=== PATIENT | female | born 1950 | race Caucasian/White ===

== ENCOUNTER 2018-07-31 08:15 | Inpatient (IN) | payer MEDICARE, OTHER ==
[~2018-07-31] VITALS: Ht 165.1 cm; Wt 97.8 kg
[2018-07-31] MEDS ORDERED: DILTIAZEM 25 MG INJ IV ONE (09:00)
--- NOTE | 2018-07-31 09:45 | ERD ---
ER Documentation Chief Complaint Chief Complaint Palpitation after finishing dialysis also c/o of dizziness HPI 68-year-old woman with history of paroxysmal atrial fibrillation presents with palpitations and dizziness after completing full dialysis. She states in the past with atrial fibrillation she never felt palpitations and states last episode was about a year ago and she usually experiences at most 1/year. She denies chest pain, no loss of consciousness, no fevers or chills, no headache or blurry vision. Patient transported here by EMS without further complication, patient uses apixaban daily ROS All systems reviewed and are negative except as per history of present illness. Medications Home Meds Reported Medications Levothyroxine Sodium* (Levothyroxine Sodium*) 175 Mcg Tablet, 175 MCG PO BEFORE BREAKFAST, #30 TAB 07/31/18 Sevelamer Carbonate* (Renvela*) 2.4 Gm Powd.pack, 2.4 GM PO WITH MEALS, PACKET 07/31/18 Liraglutide (Victoza 3-Jerich[place]) 0.6 Mg/0.1 Ml Pen.injctr, 1.8 MG SQ DAILY, SYR 07/31/18 Insulin Aspart* (Novolog Insulin Pen*) 100 Unit/Ml Soln, 0 SC .SLIDING SCALE AC, EA 07/31/18 Insulin Glargine* (Lantus*) 100 Unit/Ml Soln, 50 UNIT SC DAILY, #1 VIAL 07/31/18 Sertraline Hcl* (Sertraline Hcl*) 100 Mg Tablet, 100 MG PO DAILY, #30 TAB 07/31/18 Irbesartan* (Irbesartan*) 150 Mg Tablet, 150 MG PO DAILY, TAB 07/31/18 Ergocalciferol (Vitamin D2) (VITAMIN D2) 50,000 Unit Capsule, 36254 UNIT PO WEEKLY, CAP 07/31/18 Cyanocobalamin* (Vitamin B12*) 500 Mcg Tab, 500 MCG PO DAILY, TAB 07/31/18 Folic Acid* (Folic Acid*) 1 Mg Tablet, 1 MG PO DAILY, TAB 07/31/18 Apixaban* (Eliquis*) 5 Mg Tablet, 5 MG PO BID, TAB 07/31/18 Pregabalin* (Lyrica*) 50 Mg Capsule, 50 MG PO BID, CAP 07/31/18 Carvedilol* (Coreg*) 25 Mg Tablet, 25 MG PO BID, #60 TAB 07/31/18 Allergies Allergies: Coded Allergies: No Known Allergy (Unverified , 07/31/18) PMhx/Soc Hypothyroidism, hypertension, diabetes mellitus, paroxysmal atrial fibrillation, end-stage kidney disease hemodialysis dependent History of Surgery: Yes (AVF PLACEMENT) Anesthesia Reaction: No Hx Neurological Disorder: No Hx Respiratory Disorders: No Hx Cardiac Disorders: Yes (HTN,AFIB) Hx Psychiatric Problems: No Hx Miscellaneous Medical Probl: Yes (DM) Hx Alcohol Use: No Hx Substance Use: No Hx Tobacco Use: No Smoking Status: Never smoker FmHx Family History: No diabetes Physical Exam Vitals Vital Signs Date Temp Pulse Resp B/P (MAP) Pulse Ox O2 O2 Flow FiO2 Time Delivery Rate 07/31/18 108 18 103/75 97 Room Air 09:39 (84) 07/31/18 Nasal 2 08:50 Cannula 07/31/18 97.7 115 18 116/78 98 08:23 (91) Physical Exam Const: No acute distress, afebrile Head: Atraumatic Eyes: Normal Conjunctiva ENT: Normal External Ears, Nose and Mouth. Neck: Full range of motion. No meningismus. Resp: Clear to auscultation bilaterally Cardio: Tachycardic and regular Abd: Soft, non tender, non distended. Normal bowel sounds Skin: No petechiae or rashes Back: No midline or flank tenderness Ext: No cyanosis, or edema Neur: Awake and alert x3, no focal deficits or facial asymmetry Psych: Normal Mood and Affect Result Diagram: 07/31/18 0839 07/31/18 0839 Results 24 hrs Laboratory Tests Test 07/31/18 08:39 White Blood Count 4.5 10^3/ul Red Blood Count 3.50 10^6/ul Hemoglobin 11.2 g/dl Hematocrit 34.4 % Mean Corpuscular Volume 98.3 fl Mean Corpuscular Hemoglobin 32.0 pg Mean Corpuscular Hemoglobin Concent 32.6 g/dl Red Cell Distribution Width 14.0 % Platelet Count 106 10^3/UL Mean Platelet Volume 11.4 fl Immature Granulocytes % 0.700 % Neutrophils % 60.9 % Lymphocytes % 23.9 % Monocytes % 12.0 % Eosinophils % 1.8 % Basophils % 0.7 % Nucleated Red Blood Cells % 0.0 /100WBC Immature Granulocytes # 0.030 10^3/ul Neutrophils # 2.8 10^3/ul Lymphocytes # 1.1 10^3/ul Monocytes # 0.5 10^3/ul Eosinophils # 0.1 10^3/ul Basophils # 0.0 10^3/ul Nucleated Red Blood Cells # 0.0 10^3/ul Prothrombin Time 13.0 Sec Prothrombin Time Ratio 1.0 INR International Normalized Ratio 0.97 Activated Partial Thromboplast Time 34.3 Sec Sodium Level 138 mmol/L Potassium Level 3.4 mmol/L Chloride Level 97 mmol/L Carbon Dioxide Level 30 mmol/L Anion Gap 11 Blood Urea Nitrogen 25 mg/dl Creatinine 2.52 mg/dl Est Glomerular Filtrat Rate mL/min 19 mL/min Glucose Level 163 mg/dl Calcium Level 8.9 mg/dl Total Bilirubin 0.2 mg/dl Direct Bilirubin 0.00 mg/dl Indirect Bilirubin 0.2 mg/dl Aspartate Amino Transf (AST/SGOT) 28 IU/L Alanine Aminotransferase (ALT/SGPT) 21 IU/L Alkaline Phosphatase 75 IU/L Troponin I 0.053 ng/ml Total Protein 7.1 g/dl Albumin 3.9 g/dl Globulin 3.20 g/dl Albumin/Globulin Ratio 1.21 Lipase 220 U/L Current Medications Medications Dose Sig/Jacky Start Time Status Last (Trade) Ordered Route PRN Stop Time Admin Dose Reason Admin Diltiazem 20 mg ONCE ONCE 07/31/18 DC 07/31/18 HCl IV 09:00 07/31/18 08:43 (Cardizem Iv) 09:01 Procedures/MDM IV line was established patient placed on front desk monitor rhythm strip revealed a wide-complex tachycardia at 130 bpm. Patient was afebrile. EKG performed, read by me revealed an atrial fibrillation with rapid ventricular rate at 127 bpm, right axis deviation, left bundle branch block, no concerning ST elevations or depressions noted. I administered diltiazem 20 mg IV x1 for A. fib with RVR. Repeat EKG was performed after diltiazem therapy revealing an atrial fibrillation rate controlled at 90 bpm, right axis deviation, left bundle branch block, no concerning ST elevations or depressions noted 1 view chest x-ray performed, read by me revealed cardiomegaly and a pacemaker in the left chest, bilateral pulmonary edema, no acute infiltrates, no pneumothorax. Critical Care: Time: 48 minutes, this was time separate from other billable procedures. Treatments/Evaluations: Close monitoring and treatment of unstable vital signs, cardiorespiratory, and neurologic status, while maintaining tight balance of fluid, respiratory, and cardiac interventions. CBC was unremarkable, electrolytes revealed renal failure, liver function tests normal, troponin negative Patient will be admitted to telemetry setting for atrial fibrillation with rapid ventricular rate and pulmonary edema. Departure Diagnosis: Primary Impression: Atrial fibrillation with RVR Additional Impressions: Pulmonary edema Chronicity: acute Qualified Codes: J81.0 - Acute pulmonary edema CHF (congestive heart failure) Heart failure type: combined systolic and diastolic Heart failure chronicit y: acute Qualified Codes: I50.41 - Acute combined systolic (congestive) and diastolic (congestive) heart failure End stage kidney disease Condition: TANIA Ramirez MD Jul 31, 2018 09:45
[2018-07-31] MEDS ORDERED: morphine 2 MG INJ IV PRN (11:00)
[2018-07-31] MEDS ORDERED: hydrALAzine 20 MG INJ IV PRN (11:00)
[2018-07-31] MEDS ORDERED: NITROGLYCERIN (SL) 0.4 MG TAB SL PRN (11:00)
[2018-07-31] MEDS ORDERED: ALBUTEROL/IPRATROPIUM (NEB) 3 ML AMP HHN PRN (11:00)
[2018-07-31] MEDS ORDERED: HYDROCODONE/APAP (5/325) TAB PO PRN (11:00)
[2018-07-31] MEDS ORDERED: NACL 0.9% 3 ML SYG IV SCH (11:00)
[2018-07-31] MEDS ORDERED: ACETAMINOPHEN 325 MG TAB PO PRN (11:00)
[2018-07-31] MEDS ORDERED: DILTIAZEM-D5W 125MG/125ML DRIP 125 ML IV SCH (11:00)
[2018-07-31] MEDS ORDERED: LORAZEPAM 2 MG INJ IV PRN (11:00)
[2018-07-31] MEDS ORDERED: DOCUSATE SODIUM 100 MG CAP PO PRN (11:00)
[2018-07-31] MEDS ORDERED: ONDANSETRON 4 MG INJ IV PRN (11:00)
[2018-07-31] MEDS ORDERED: MAGNESIUM HYDROXIDE 30ML CUP PO PRN (11:00)
[2018-07-31] MEDS ORDERED: CARV25TA97 PO (11:09)
[2018-07-31] MEDS ORDERED: APIX5TAB PO (11:10)
[2018-07-31] MEDS ORDERED: PREG50CA PO (11:10)
[2018-07-31] MEDS ORDERED: CYAN500T46 PO (11:22)
[2018-07-31] MEDS ORDERED: FOLI-49 PO (11:22)
[2018-07-31] MEDS ORDERED: SERT-165 PO (11:23)
[2018-07-31] MEDS ORDERED: IRBE150T21 PO (11:23)
[2018-07-31] MEDS ORDERED: ERGO500013 PO (11:23)
[2018-07-31] MEDS ORDERED: NOVO3I SC (11:24)
[2018-07-31] MEDS ORDERED: LANT3I SC ×2 (11:24→14:06)
[2018-07-31] MEDS ORDERED: LIRA0.6P2 SQ (11:25)
[2018-07-31] MEDS ORDERED: LEVO175T6 PO (11:25)
[2018-07-31] MEDS ORDERED: SEVE2.4P3 PO (11:25)
[2018-07-31] MEDS ORDERED: GLUCAGON 1 MG INJ IM PRN (13:30)
[2018-07-31] MEDS ORDERED: DEXTROSE 50% 50 ML SYRINGE IV PRN ×2 (13:30)
[2018-07-31] MEDS ORDERED: GLUCOSE GEL 15 GRAM TUBE PO PRN ×2 (13:30)
[2018-07-31] MEDS ORDERED: GLUCOSE GEL 15 GRAM TUBE BUCCAL PRN (13:30)
[2018-07-31 13:34] VITALS: PULSE 72
[2018-07-31 13:35] VITALS: BP 142/67; PULSE 72; RESP 18
[2018-07-31 14:04] VITALS: Ht 165.1 cm; Wt 97.8 kg
--- NOTE | 2018-07-31 14:11 | CONS ---
Consultation Date/Type/Reason Admit Date/Time Jul 31, 2018 at 10:51 Type of Consult Cardiology Date/Time of Note DATE: 07/31/18 TIME: 14:11 Hx of Present Illness 68 yo wih known parox robert kenny pt of Dr. Liliana jhaveri in place - if r/o MA - will dispo - pt has apptto see Dr. Elias Thursday # [id number] Past Medical History Home Meds Reported Medications Insulin Glargine* (Lantus*) 100 Unit/Ml Soln, 10-30 UNIT SC QHS, #1 VIAL 07/31/18 Levothyroxine Sodium* (Levothyroxine Sodium*) 175 Mcg Tablet, 175 MCG PO BEFORE BREAKFAST, #30 TAB 07/31/18 Sevelamer Carbonate* (Renvela*) 2.4 Gm Powd.pack, 2.4 GM PO WITH MEALS, PACKET 07/31/18 Liraglutide (Victoza 3-[place]) 0.6 Mg/0.1 Ml Pen.injctr, 1.8 MG SQ DAILY, SYR 07/31/18 Insulin Aspart* (Novolog Insulin Pen*) 100 Unit/Ml Soln, 0 SC .SLIDING SCALE AC, EA 07/31/18 Sertraline Hcl* (Sertraline Hcl*) 100 Mg Tablet, 100 MG PO DAILY, #30 TAB 07/31/18 Irbesartan* (Irbesartan*) 150 Mg Tablet, 150 MG PO DAILY, TAB 07/31/18 Ergocalciferol (Vitamin D2) (VITAMIN D2) 50,000 Unit Capsule, 17255 UNIT PO WEEKLY, CAP 07/31/18 Cyanocobalamin* (Vitamin B12*) 500 Mcg Tab, 500 MCG PO DAILY, TAB 07/31/18 Folic Acid* (Folic Acid*) 1 Mg Tablet, 1 MG PO DAILY, TAB 07/31/18 Apixaban* (Eliquis*) 5 Mg Tablet, 5 MG PO BID, TAB 07/31/18 Pregabalin* (Lyrica*) 50 Mg Capsule, 50 MG PO BID, CAP 07/31/18 Carvedilol* (Coreg*) 25 Mg Tablet, 25 MG PO BID, #60 TAB 07/31/18 Discontinued Reported Medications Insulin Glargine* (Lantus*) 100 Unit/Ml Soln, 50 UNIT SC DAILY, #1 VIAL 07/31/18 Medications Current Medications IV Flush (NS 3 ml) 3 ml PER PROTOCOL IV ; Start 07/31/18 at 11:00 Ondansetron HCl (Zofran Inj) 4 mg Q6H PRN IV NAUSEA/VOMITING; Start 07/31/18 at 11:00 Acetaminophen (Tylenol Tab) 650 mg Q6H PRN PO .PAIN 1-3 OR TEMP; Start 07/31/18 at 11:00 Acetaminophen/ Hydrocodone Bitart ([place] (5/325)) 1 tab Q6H PRN PO .MOD PAIN 4- 6; Start 07/31/18 at 11:00 Morphine Sulfate (morphine) 2 mg Q4H PRN IV .SEVERE PAIN 7-10; Start 07/31/18 at 11:00 Docusate Sodium (Colace) 100 mg Q12H PRN PO .CONSTIPATION; Start 07/31/18 at 11:00 Magnesium Hydroxide (Milk Of Mag) 30 ml DAILY PRN PO .CONSTIPATION; Start 07/31/18 at 11:00 Pantoprazole (Protonix Tab) 40 mg DAILY@06 PO ; Start 08/01/18 at 06:00 Lorazepam (Ativan) 0.5 mg Q6H PRN IV ANXIETY; Start 07/31/18 at 11:00 Albuterol/ Ipratropium (Duoneb) 3 ml Q4H RESP THERAPY PRN HHN SHORTNESS OF BREATH; Start 07/31/18 at 11:00 Hydralazine HCl (Apresoline) 10 mg Q6H PRN IV ELEVATED BLOOD PRESSURE; Start 07/31/18 at 11:00 Nitroglycerin (Nitroglycerin (Sl Tab) 0.4 Mg) 1 tab Q5M PRN SL ANGINA; Start 07/31/18 at 11:00 Diltiazem HCl 125 ml @ 5 mls/hr TITRATE IV ; Start 07/31/18 at 11:00 Apixaban (Eliquis) 5 mg BID PO ; Start 07/31/18 at 21:00 Carvedilol (Coreg) 25 mg BID PO ; Start 07/31/18 at 21:00 Cyanocobalamin (Vitamin B12) 500 mcg DAILY PO ; Start 08/01/18 at 09:00 Folic Acid (Folic Acid) 1 mg DAILY PO ; Start 08/01/18 at 09:00 Insulin Glargine (Lantus) 50 units DAILY SC ; Start 08/01/18 at 09:00 Levothyroxine Sodium (Synthroid) 175 mcg BEFORE BREAKFAST PO ; Start 08/01/18 at 07:00 Pregabalin (Lyrica) 50 mg BID PO ; Start 07/31/18 at 21:00 Sevelamer Carbonate (Renvela) 2.4 gm WITH MEALS PO ; Start 07/31/18 at 18:00 Miscellaneous Information 1 ea NOTE XX ; Start 07/31/18 at 13:30 Glucose (Glutose) 15 gm Q15M PRN PO DECREASED GLUCOSE; Start 07/31/18 at 13:30 Glucose (Glutose) 22.5 gm Q15M PRN PO DECREASED GLUCOSE; Start 07/31/18 at 13:30 Dextrose (D50w Syringe) 25 ml Q15M PRN IV DECREASED GLUCOSE; Start 07/31/18 at 13:30 Dextrose (D50w Syringe) 50 ml Q15M PRN IV DECREASED GLUCOSE; Start 07/31/18 at 13:30 Glucagon (Glucagen) 1 mg Q15M PRN IM DECREASED GLUCOSE; Start 07/31/18 at 13:30 Glucose (Glutose) 15 gm Q15M PRN BUCCAL DECREASED GLUCOSE; Start 07/31/18 at 13:30 Allergies: Coded Allergies: No Known Allergy (Unverified , 07/31/18) Social History Smoking Status: Never smoker Exam/Review of Systems Vital Signs Vitals Vital Signs Date Temp Pulse Resp B/P (MAP) Pulse Ox O2 O2 Flow FiO2 Time Delivery Rate 07/31/18 98.9 72 18 142/67 96 Room Air 13:35 (92) 07/31/18 2 08:50 Labs Result Diagram: 07/31/18 0839 07/31/18 0839 Results 24hrs Laboratory Tests Test 07/31/18 08:39 07/31/18 11:10 White Blood Count 4.5 L Red Blood Count 3.50 L Hemoglobin 11.2 L Hematocrit 34.4 L Mean Corpuscular Volume 98.3 Mean Corpuscular Hemoglobin 32.0 Mean Corpuscular Hemoglobin Concent 32.6 Red Cell Distribution Width 14.0 Platelet Count 106 L Mean Platelet Volume 11.4 H Immature Granulocytes % 0.700 H Neutrophils % 60.9 Lymphocytes % 23.9 Monocytes % 12.0 H Eosinophils % 1.8 Basophils % 0.7 Nucleated Red Blood Cells % 0.0 Immature Granulocytes # 0.030 Neutrophils # 2.8 Lymphocytes # 1.1 Monocytes # 0.5 Eosinophils # 0.1 Basophils # 0.0 Nucleated Red Blood Cells # 0.0 Prothrombin Time 13.0 14.7 Prothrombin Time Ratio 1.0 1.1 INR International Normalized Ratio 0.97 1.14 Activated Partial Thromboplast Time 34.3 33.7 Sodium Level 138 Potassium Level 3.4 L Chloride Level 97 Carbon Dioxide Level 30 Anion Gap 11 Blood Urea Nitrogen 25 H Creatinine 2.52 H Est Glomerular Filtrat Rate mL/min 19 L Glucose Level 163 Calcium Level 8.9 Total Bilirubin 0.2 Direct Bilirubin 0.00 Indirect Bilirubin 0.2 Aspartate Amino Transf (AST/SGOT) 28 Alanine Aminotransferase (ALT/SGPT) 21 Alkaline Phosphatase 75 Troponin I 0.053 Total Protein 7.1 Albumin 3.9 Globulin 3.20 Albumin/Globulin Ratio 1.21 Lipase 220 Free Thyroxine 1.23 Medications Medications Current Medications IV Flush (NS 3 ml) 3 ml PER PROTOCOL IV ; Start 07/31/18 at 11:00 Ondansetron HCl (Zofran Inj) 4 mg Q6H PRN IV NAUSEA/VOMITING; Start 07/31/18 at 11:00 Acetaminophen (Tylenol Tab) 650 mg Q6H PRN PO .PAIN 1-3 OR TEMP; Start 07/31/18 at 11:00 Acetaminophen/ Hydrocodone Bitart ([place] (5/325)) 1 tab Q6H PRN PO .MOD PAIN 4- 6; Start 07/31/18 at 11:00 Morphine Sulfate (morphine) 2 mg Q4H PRN IV .SEVERE PAIN 7-10; Start 07/31/18 at 11:00 Docusate Sodium (Colace) 100 mg Q12H PRN PO .CONSTIPATION; Start 07/31/18 at 11:00 Magnesium Hydroxide (Milk Of Mag) 30 ml DAILY PRN PO .CONSTIPATION; Start 07/31/18 at 11:00 Pantoprazole (Protonix Tab) 40 mg DAILY@06 PO ; Start 08/01/18 at 06:00 Lorazepam (Ativan) 0.5 mg Q6H PRN IV ANXIETY; Start 07/31/18 at 11:00 Albuterol/ Ipratropium (Duoneb) 3 ml Q4H RESP THERAPY PRN HHN SHORTNESS OF CHASITY TH; Start 07/31/18 at 11:00 Hydralazine HCl (Apresoline) 10 mg Q6H PRN IV ELEVATED BLOOD PRESSURE; Start 07/31/18 at 11:00 Nitroglycerin (Nitroglycerin (Sl Tab) 0.4 Mg) 1 tab Q5M PRN SL ANGINA; Start 07/31/18 at 11:00 Diltiazem HCl 125 ml @ 5 mls/hr TITRATE IV ; Start 07/31/18 at 11:00 Apixaban (Eliquis) 5 mg BID PO ; Start 07/31/18 at 21:00 Carvedilol (Coreg) 25 mg BID PO ; Start 07/31/18 at 21:00 Cyanocobalamin (Vitamin B12) 500 mcg DAILY PO ; Start 08/01/18 at 09:00 Folic Acid (Folic Acid) 1 mg DAILY PO ; Start 08/01/18 at 09:00 Insulin Glargine (Lantus) 50 units DAILY SC ; Start 08/01/18 at 09:00 Levothyroxine Sodium (Synthroid) 175 mcg BEFORE BREAKFAST PO ; Start 08/01/18 at 07:00 Pregabalin (Lyrica) 50 mg BID PO ; Start 07/31/18 at 21:00 Sevelamer Carbonate (Renvela) 2.4 gm WITH MEALS PO ; Start 07/31/18 at 18:00 Miscellaneous Information 1 ea NOTE XX ; Start 07/31/18 at 13:30 Glucose (Glutose) 15 gm Q15M PRN PO DECREASED GLUCOSE; Start 07/31/18 at 13:30 Glucose (Glutose) 22.5 gm Q15M PRN PO DECREASED GLUCOSE; Start 07/31/18 at 13:30 Dextrose (D50w Syringe) 25 ml Q15M PRN IV DECREASED GLUCOSE; Start 07/31/18 at 13:30 Dextrose (D50w Syringe) 50 ml Q15M PRN IV DECREASED GLUCOSE; Start 07/31/18 at 13:30 Glucagon (Glucagen) 1 mg Q15M PRN IM DECREASED GLUCOSE; Start 07/31/18 at 13:30 Glucose (Glutose) 15 gm Q15M PRN BUCCAL DECREASED GLUCOSE; Start 07/31/18 at 13:30 DAVID BUSH MD Jul 31, 2018 14:11
--- NOTE | 2018-07-31 14:26 | CONS ---
Assessment/Plan Assessment/Plan Assessment/Plan (Daily) 1. Acute Fluid overload/Pulmonary congestion 2. ESRD on HD TTS schedule 3. H/O HTN 4. H/o HL 5. H/o DM II 6. atrial fibrillation with RVR 7. H/o pacemaker placement Plan: s/p HD today AM for 3 hr- pt regular schedule is TTS - will plan for HD on Thursday, pt has AVF access Rate control of atrial fibrillation with cardizem gtt, coreg 25 mg BID Sevelamer for Hyperphosphatemia will plan for extra HD on ydue to congestion and then we will keep pt on her original HD schedule TTS Thanks for consultation I will continue to follow up Consultation Date/Type/Reason Admit Date/Time Jul 31, 2018 at 10:51 Date of Consultation: Jul 31, 2018 Type of Consult NEPHROLOGY Reason for Consultation Acute kidney injury Requesting Provider: ELVIA ZULETA Date/Time of Note DATE: 07/31/18 TIME: 14:26 Hx of Present Illness 68-year-old female with prior history of atrial fibrillation on Eliquis at home, hypertension, end-stage renal disease on dialysis Thu,, Thursday, possible diabetes who presents with palpitations. She completed about 3 hours of dialysis and felt some palpitations post dialysis. She says she has not felt this before. No upper or lower GI bleeding, fevers or chills, diarrhea, consti pation, nausea or vomiting. pt gets admitted for atrial fibrillation with RVR Renal has been consulted for HD need, CXR showed pulmonary congestion. saturation 97% RA, BP slightly high, Constitutional: no complaints Eyes: no complaints ENT: no complaints Respiratory: pain Cardiovascular: lightheadedness, palpitations Gastrointestinal: no complaints Genitourinary: no complaints Musculoskeletal: no complaints Skin: no complaints Neurologic: no complaints Endocrine: no complaints Lymphatic: no complaints Psychological: no complaints Immunologic: no complaints Past Medical History Medical History: diabetes, hypertension, other (trial fibrillation on Eliquis at home, hypertension, end-stage renal disease on dialysis Thu,, Thursday) Home Meds Reported Medications Insulin Glargine* (Lantus*) 100 Unit/Ml Soln, 10-30 UNIT SC QHS, #1 VIAL 07/31/18 Levothyroxine Sodium* (Levothyroxine Sodium*) 175 Mcg Tablet, 175 MCG PO BEFORE BREAKFAST, #30 TAB 07/31/18 Sevelamer Carbonate* (Renvela*) 2.4 Gm Powd.pack, 2.4 GM PO WITH MEALS, PACKET 07/31/18 Liraglutide (Victoza 3-[place]) 0.6 Mg/0.1 Ml Pen.injctr, 1.8 MG SQ DAILY, SYR 07/31/18 Insulin Aspart* (Novolog Insulin Pen*) 100 Unit/Ml Soln, 0 SC .SLIDING SCALE AC, EA 07/31/18 Sertraline Hcl* (Sertraline Hcl*) 100 Mg Tablet, 100 MG PO DAILY, #30 TAB 07/31/18 Irbesartan* (Irbesartan*) 150 Mg Tablet, 150 MG PO DAILY, TAB 07/31/18 Ergocalciferol (Vitamin D2) (VITAMIN D2) 50,000 Unit Capsule, 53573 UNIT PO WEEKLY, CAP 07/31/18 Cyanocobalamin* (Vitamin B12*) 500 Mcg Tab, 500 MCG PO DAILY, TAB 07/31/18 Folic Acid* (Folic Acid*) 1 Mg Tablet, 1 MG PO DAILY, TAB 07/31/18 Apixaban* (Eliquis*) 5 Mg Tablet, 5 MG PO BID, TAB 07/31/18 Pregabalin* (Lyrica*) 50 Mg Capsule, 50 MG PO BID, CAP 07/31/18 Carvedilol* (Coreg*) 25 Mg Tablet, 25 MG PO BID, #60 TAB 07/31/18 Discontinued Reported Medications Insulin Glargine* (Lantus*) 100 Unit/Ml Soln, 50 UNIT SC DAILY, #1 VIAL 07/31/18 Medications Current Medications IV Flush (NS 3 ml) 3 ml PER PROTOCOL IV ; Start 07/31/18 at 11:00 Ondansetron HCl (Zofran Inj) 4 mg Q6H PRN IV NAUSEA/VOMITING; Start 07/31/18 at 11:00 Acetaminophen (Tylenol Tab) 650 mg Q6H PRN PO .PAIN 1-3 OR TEMP; Start 07/31/18 at 11:00 Acetaminophen/ Hydrocodone Bitart ([place] (5/325)) 1 tab Q6H PRN PO .MOD PAIN 4- 6; Start 07/31/18 at 11:00 Morphine Sulfate (morphine) 2 mg Q4H PRN IV .SEVERE PAIN 7-10; Start 07/31/18 at 11:00 Docusate Sodium (Colace) 100 mg Q12H PRN PO .CONSTIPATION; Start 07/31/18 at 11:00 Magnesium Hydroxide (Milk Of Mag) 30 ml DAILY PRN PO .CONSTIPATION; Start 07/31/18 at 11:00 Pantoprazole (Protonix Tab) 40 mg DAILY@06 PO ; Start 08/01/18 at 06:00 Lorazepam (Ativan) 0.5 mg Q6H PRN IV ANXIETY; Start 07/31/18 at 11:00 Albuterol/ Ipratropium (Duoneb) 3 ml Q4H RESP THERAPY PRN HHN SHORTNESS OF BREATH; Start 07/31/18 at 11:00 Hydralazine HCl (Apresoline) 10 mg Q6H PRN IV ELEVATED BLOOD PRESSURE; Start 07/31/18 at 11:00 Nitroglycerin (Nitroglycerin (Sl Tab) 0.4 Mg) 1 tab Q5M PRN SL ANGINA; Start 07/31/18 at 11:00 Diltiazem HCl 125 ml @ 5 mls/hr TITRATE IV ; Start 07/31/18 at 11:00 Apixaban (Eliquis) 5 mg BID PO ; Start 07/31/18 at 21:00 Carvedilol (Coreg) 25 mg BID PO ; Start 07/31/18 at 21:00 Cyanocobalamin (Vitamin B12) 500 mcg DAILY PO ; Start 08/01/18 at 09:00 Folic Acid (Folic Acid) 1 mg DAILY PO ; Start 08/01/18 at 09:00 Insulin Glargine (Lantus) 50 units DAILY SC ; Start 08/01/18 at 09:00 Levothyroxine Sodium (Synthroid) 175 mcg BEFORE BREAKFAST PO ; Start 08/01/18 at 07:00 Pregabalin (Lyrica) 50 mg BID PO ; Start 07/31/18 at 21:00 Sevelamer Carbonate (Renvela) 2.4 gm WITH MEALS PO ; Start 07/31/18 at 18:00 Miscellaneous Information 1 ea NOTE XX ; Start 07/31/18 at 13:30 Glucose (Glutose) 15 gm Q15M PRN PO DECREASED GLUCOSE; Start 07/31/18 at 13:30 Glucose (Glutose) 22.5 gm Q15M PRN PO DECREASED GLUCOSE; Start 07/31/18 at 13:30 Dextrose (D50w Syringe) 25 ml Q15M PRN IV DECREASED GLUCOSE; Start 07/31/18 at 13:30 Dextrose (D50w Syringe) 50 ml Q15M PRN IV DECREASED GLUCOSE; Start 07/31/18 at 13:30 Glucagon (Glucagen) 1 mg Q15M PRN IM DECREASED GLUCOSE; Start 07/31/18 at 13:30 Glucose (Glutose) 15 gm Q15M PRN BUCCAL DECREASED GLUCOSE; Start 07/31/18 at 13:30 Allergies: Coded Allergies: No Known Allergy (Unverified , 07/31/18) Past Surgical History Past Surgical Hx: other (AV fistula, pacemaker ) Family History Significant Family History: no pertinent family hx Social History Alcohol Use: none Smoking Status: Never smoker Drug Use: none Exam/Review of Systems Exam Vitals Vital Signs Date Temp Pulse Resp B/P (MAP) Pulse Ox O2 O2 Flow FiO2 Time Delivery Rate 07/31/18 98.9 72 18 142/67 96 Room Air 13:35 (92) 07/31/18 2 08:50 Constitutional: alert Head: normocephalic Eyes: nl conjunctiva Neck: supple, non-tender Respiratory: congested cough, crackles/rales, diminished breath sounds Cardiovascular: regular rate and rhythm, nl pulses Gastrointestinal: soft, non-tender Musculoskeletal: muscle weakness, swelling Extremities: normal pulses Neurological: HEALTH INFORMATION TECHNICIAN II-XII intact, nl mental status, nl speech, nl strength Skin: nl turgor Lymph: nl lymph nodes Results Result Diagram: 07/31/18 0839 07/31/18 0839 Results 24hrs Laboratory Tests Test 07/31/18 08:39 07/31/18 11:10 White Blood Count 4.5 L Red Blood Count 3.50 L Hemoglobin 11.2 L Hematocrit 34.4 L Mean Corpuscular Volume 98.3 Mean Corpuscular Hemoglobin 32.0 Mean Corpuscular Hemoglobin Concent 32.6 Red Cell Distribution Width 14.0 Platelet Count 106 L Mean Platelet Volume 11.4 H Immature Granulocytes % 0.700 H Neutrophils % 60.9 Lymphocytes % 23.9 Monocytes % 12.0 H Eosinophils % 1.8 Basophils % 0.7 Nucleated Red Blood Cells % 0.0 Immature Granulocytes # 0.030 Neutrophils # 2.8 Lymphocytes # 1.1 Monocytes # 0.5 Eosinophils # 0.1 Basophils # 0.0 Nucleated Red Blood Cells # 0.0 Prothrombin Time 13.0 14.7 Prothrombin Time Ratio 1.0 1.1 INR International Normalized Ratio 0.97 1.14 Activated Partial Thromboplast Time 34.3 33.7 Sodium Level 138 Potassium Level 3.4 L Chloride Level 97 Carbon Dioxide Level 30 Anion Gap 11 Blood Urea Nitrogen 25 H Creatinine 2.52 H Est Glomerular Filtrat Rate mL/min 19 L Glucose Level 163 Calcium Level 8.9 Total Bilirubin 0.2 Direct Bilirubin 0.00 Indirect Bilirubin 0.2 Aspartate Amino Transf (AST/SGOT) 28 Alanine Aminotransferase (ALT/SGPT) 21 Alkaline Phosphatase 75 Troponin I 0.053 Total Protein 7.1 Albumin 3.9 Globulin 3.20 Albumin/Globulin Ratio 1.21 Lipase 220 Free Thyroxine 1.23 Medications Medication Current Medications IV Flush (NS 3 ml) 3 ml PER PROTOCOL IV ; Start 07/31/18 at 11:00 Ondansetron HCl (Zofran Inj) 4 mg Q6H PRN IV NAUSEA/VOMITING; Start 07/31/18 at 11:00 Acetaminophen (Tylenol Tab) 650 mg Q6H PRN PO .PAIN 1-3 OR TEMP; Start 07/31/18 at 11:00 Acetaminophen/ Hydrocodone Bitart ([place] (5/325)) 1 tab Q6H PRN PO .MOD PAIN 4- 6; Start 07/31/18 at 11:00 Morphine Sulfate (morphine) 2 mg Q4H PRN IV .SEVERE PAIN 7-10; Start 07/31/18 at 11:00 Docusate Sodium (Colace) 100 mg Q12H PRN PO .CONSTIPATION; Start 07/31/18 at 11:00 Magnesium Hydroxide (Milk Of Mag) 30 ml DAILY PRN PO .CONSTIPATION; Start 07/31/18 at 11:00 Pantoprazole (Protonix Tab) 40 mg DAILY@06 PO ; Start 08/01/18 at 06:00 Lorazepam (Ativan) 0.5 mg Q6H PRN IV ANXIETY; Start 07/31/18 at 11:00 Albuterol/ Ipratropium (Duoneb) 3 ml Q4H RESP THERAPY PRN HHN SHORTNESS OF BREATH; Start 07/31/18 at 11:00 Hydralazine HCl (Apresoline) 10 mg Q6H PRN IV ELEVATED BLOOD PRESSURE; Start 07/31/18 at 11:00 Nitroglycerin (Nitroglycerin (Sl Tab) 0.4 Mg) 1 tab Q5M PRN SL ANGINA; Start 07/31/18 at 11:00 Diltiazem HCl 125 ml @ 5 mls/hr TITRATE IV ; Start 07/31/18 at 11:00 Apixaban (Eliquis) 5 mg BID PO ; Start 07/31/18 at 21:00 Carvedilol (Coreg) 25 mg BID PO ; Start 07/31/18 at 21:00 Cyanocobalamin (Vitamin B12) 500 mcg DAILY PO ; Start 08/01/18 at 09:00 Folic Acid (Folic Acid) 1 mg DAILY PO ; Start 08/01/18 at 09:00 Insulin Glargine (Lantus) 50 units DAILY SC ; Start 08/01/18 at 09:00 Levothyroxine Sodium (Synthroid) 175 mcg BEFORE BREAKFAST PO ; Start 08/01/18 at 07:00 Pregabalin (Lyrica) 50 mg BID PO ; Start 07/31/18 at 21:00 Sevelamer Carbonate (Renvela) 2.4 gm WITH MEALS PO ; Start 07/31/18 at 18:00 Miscellaneous Information 1 ea NOTE XX ; Start 07/31/18 at 13:30 Glucose (Glutose) 15 gm Q15M PRN PO DECREASED GLUCOSE; Start 07/31/18 at 13:30 Glucose (Glutose) 22.5 gm Q15M PRN PO DECREASED GLUCOSE; Start 07/31/18 at 13:30 Dextrose (D50w Syringe) 25 ml Q15M PRN IV DECREASED GLUCOSE; Start 07/31/18 at 13:30 Dextrose (D50w Syringe) 50 ml Q15M PRN IV DECREASED GLUCOSE; Start 07/31/18 at 13:30 Glucagon (Glucagen) 1 mg Q15M PRN IM DECREASED GLUCOSE; Start 07/31/18 at 13:30 Glucose (Glutose) 15 gm Q15M PRN BUCCAL DECREASED GLUCOSE; Start 07/31/18 at 13:30 ALVINO COTO MD Jul 31, 2018 14:26
--- NOTE | 2018-07-31 14:27 | HP ---
DATE OF ADMISSION: 07/31/2018 IDENTIFICATION: This is a 68-year-old female. CHIEF COMPLAINT: Palpitations. HISTORY OF PRESENT ILLNESS: A 68-year-old female with prior history of atrial fibrillation on Eliqui s at home, hypertension, end-stage renal disease on dialysis, possible diabetes who presents with pal pitations. The patient was at dialysis earlier today. She completed about 3 hours of dialysis and f elt some palpitations. She says she has not felt this before. No upper or lower GI bleeding, fevers or chills, diarrhea, constipation, nausea or vomiting. There was concern, so she was brought to the ER and when she came in, she was found with elevated heart rate of 115 to 120 range and signs of atr ial fibrillation with RVR. She was given Cardizem in the ER. Presently, the heart rate is still robles vated; however, the 115 range, but she is having slightly less palpitations. PAST MEDICAL HISTORY: As stated above. ALLERGIES: NO KNOWN DRUG ALLERGIES. MEDICATIONS AT HOME: 1. Eliquis 5 mg b.i.d. 2. Coreg 25 mg b.i.d. 3. Lyrica 50 mg b.i.d. 4. Sertraline 100 mg daily. 5. Renvela 2.4 grams with meals. 6. Aspart insulin sliding scale. 7. Lantus 50 units daily. 8. Levothyroxine 175 mcg every morning. 9. Victoza 1.8 mg daily. 10. Vitamin B12 500 mcg daily. 11. Vitamin D 50,000 units weekly. 12. Folic acid 1 mg daily. 13. She takes ARB medication 150 mg daily. PAST SURGICAL HISTORY: AV fistula placement. SOCIAL HISTORY: Negative for smoking. No drinking or IV drug abuse. FAMILY HISTORY: Noncontributory. PHYSICAL EXAMINATION: VITAL SIGNS: T-max 97.7, pulse 108 to 120 irregular, respirations 18, blood pressure is 116/78, satt ing at 98% on 2 liters nasal cannula. GENERAL: The patient is lying in bed, answering questions appropriately, in no acute distress. HEENT: Pupils equal, round, reactive to light. Extraocular muscles are intact. NECK: Supple, no thyromegaly. LUNGS: Clear to auscultation bilaterally. CARDIOVASCULAR: Irregularly irregular heart rate, tachycardic. No rubs or gallops. ABDOMEN: Soft, nontender, nondistended. Normal bowel sounds. No rebound or guarding. MUSCULOSKELETAL: No lower extremity edema bilaterally. NEUROLOGIC: No focal deficits. LABORATORIES: CBC is normal except the platelets a little low at 106. The sodium 138, potassium 3.4 , chloride 97, CO2 30, BUN 25, creatinine 2.52, glucose 163. LFTs are normal. Lipase is normal. IMAGING: Chest x-ray shows moderate cardiomegaly with mild pulmonary vascular congestion. ASSESSMENT AND PLAN: A 68-year-old female coming in with palpitations, likely secondary to atrial fi brillation with rapid ventricular response. 1. Palpitations. Again, likely secondary to atrial fibrillation with rapid ventricular response. A dmit the patient to telemetry floor. Continue Cardizem drip, titrate to keep heart rate less than 10 0. Get a cardiology consult. Check echocardiogram. Continue some of patient's home blood pressure medicines including beta renate. Consider restarting the patient's Eliquis. 2. End-stage renal disease. Again, will get renal consult. Continue dialysis per renal recommendat ions. Continue current renal Medications the patient takes at home. 3. History of hypertension. Blood pressure is stable. Continue current cardiac medications and mon itor. 4. Gastrointestinal prophylaxis with PPI. 5. Deep venous thrombosis prophylaxis. Again, she will be on Eliquis. Consider PT consult as well. Dictated By: ELVIA SUTTON Conf#: [id number] DID#: [id number]
[2018-07-31 15:06] VITALS: BP 143/66; PULSE 70; RESP 18
--- NOTE | 2018-07-31 15:10 | CONS ---
Assessment/Plan Assessment/Plan Assessment/Plan (Daily) # ESRD Completed full HD today Labs look good She may be a bit above her dry weight Next HD should be in 2 days # AF with RVR History of same in the past On anticoagulation Now converted to NSR # Diabetes Mellitus Continue usual insulin dosing Monitor blood sugars. Consultation Date/Type/Reason Admit Date/Time Jul 31, 2018 at 10:51 Type of Consult Nephrology Reason for Consultation ESRD management Date/Time of Note DATE: 07/31/18 TIME: 15:02 Hx of Present Illness The patient is a 68 y/o woman with ESRD due to diabetic nephropathy who is known to me from the dialysis center. Today during dialysis she developed palpitations and dizziness. She did not have chest pain. She was noted to have an elevated heart rate. she was able to complete the dialysis treatment and was then transported to the ED. She was found to be in atrial fibrillation with RVR and admitted. She received diltiazem and now has converted to sinus rhythm. She has a history of PAF, on Eliquis. She is s/p pacemaker for bradycardia. She is followed by Dr. Elias in [place]. Past Medical History Medical History: no pertinent history Home Meds Reported Medications Insulin Glargine* (Lantus*) 100 Unit/Ml Soln, 10-30 UNIT SC QHS, #1 VIAL 07/31/18 Levothyroxine Sodium* (Levothyroxine Sodium*) 175 Mcg Tablet, 175 MCG PO BEFORE BREAKFAST, #30 TAB 07/31/18 Sevelamer Carbonate* (Renvela*) 2.4 Gm Powd.pack, 2.4 GM PO WITH MEALS, PACKET 07/31/18 Liraglutide (Victoza 3-[place]) 0.6 Mg/0.1 Ml Pen.injctr, 1.8 MG SQ DAILY, SYR 07/31/18 Insulin Aspart* (Novolog Insulin Pen*) 100 Unit/Ml Soln, 0 SC .SLIDING SCALE AC, EA 07/31/18 Sertraline Hcl* (Sertraline Hcl*) 100 Mg Tablet, 100 MG PO DAILY, #30 TAB 07/31/18 Irbesartan* (Irbesartan*) 150 Mg Tablet, 150 MG PO DAILY, TAB 07/31/18 Ergocalciferol (Vitamin D2) (VITAMIN D2) 50,000 Unit Capsule, 74660 UNIT PO WEEKLY, CAP 07/31/18 Cyanocobalamin* (Vitamin B12*) 500 Mcg Tab, 500 MCG PO DAILY, TAB 07/31/18 Folic Acid* (Folic Acid*) 1 Mg Tablet, 1 MG PO DAILY, TAB 07/31/18 Apixaban* (Eliquis*) 5 Mg Tablet, 5 MG PO BID, TAB 07/31/18 Pregabalin* (Lyrica*) 50 Mg Capsule, 50 MG PO BID, CAP 07/31/18 Carvedilol* (Coreg*) 25 Mg Tablet, 25 MG PO BID, #60 TAB 07/31/18 Discontinued Reported Medications Insulin Glargine* (Lantus*) 100 Unit/Ml Soln, 50 UNIT SC DAILY, #1 VIAL 07/31/18 Medications Current Medications IV Flush (NS 3 ml) 3 ml PER PROTOCOL IV ; Start 07/31/18 at 11:00 Ondansetron HCl (Zofran Inj) 4 mg Q6H PRN IV NAUSEA/VOMITING; Start 07/31/18 at 11:00 Acetaminophen (Tylenol Tab) 650 mg Q6H PRN PO .PAIN 1-3 OR TEMP; Start 07/31/18 at 11:00 Acetaminophen/ Hydrocodone Bitart ([place] (5/325)) 1 tab Q6H PRN PO .MOD PAIN 4- 6; Start 07/31/18 at 11:00 Morphine Sulfate (morphine) 2 mg Q4H PRN IV .SEVERE PAIN 7-10; Start 07/31/18 at 11:00 Docusate Sodium (Colace) 100 mg Q12H PRN PO .CONSTIPATION; Start 07/31/18 at 11:00 Magnesium Hydroxide (Milk Of Mag) 30 ml DAILY PRN PO .CONSTIPATION; Start 07/31/18 at 11:00 Pantoprazole (Protonix Tab) 40 mg DAILY@06 PO ; Start 08/01/18 at 06:00 Lorazepam (Ativan) 0.5 mg Q6H PRN IV ANXIETY; Start 07/31/18 at 11:00 Albuterol/ Ipratropium (Duoneb) 3 ml Q4H RESP THERAPY PRN HHN SHORTNESS OF BREATH; Start 07/31/18 at 11:00 Hydralazine HCl (Apresoline) 10 mg Q6H PRN IV ELEVATED BLOOD PRESSURE; Start 07/31/18 at 11:00 Nitroglycerin (Nitroglycerin (Sl Tab) 0.4 Mg) 1 tab Q5M PRN SL ANGINA; Start 07/31/18 at 11:00 Diltiazem HCl 125 ml @ 5 mls/hr TITRATE IV ; Start 07/31/18 at 11:00 Apixaban (Eliquis) 5 mg BID PO ; Start 07/31/18 at 21:00 Carvedilol (Coreg) 25 mg BID PO ; Start 07/31/18 at 21:00 Cyanocobalamin (Vitamin B12) 500 mcg DAILY PO ; Start 08/01/18 at 09:00 Folic Acid (Folic Acid) 1 mg DAILY PO ; Start 08/01/18 at 09:00 Insulin Glargine (Lantus) 50 units DAILY SC ; Start 08/01/18 at 09:00 Levothyroxine Sodium (Synthroid) 175 mcg BEFORE BREAKFAST PO ; Start 08/01/18 at 07:00 Pregabalin (Lyrica) 50 mg BID PO ; Start 07/31/18 at 21:00 Sevelamer Carbonate (Renvela) 2.4 gm WITH MEALS PO ; Start 07/31/18 at 18:00 Miscellaneous Information 1 ea NOTE XX ; Start 07/31/18 at 13:30 Glucose (Glutose) 15 gm Q15M PRN PO DECREASED GLUCOSE; Start 07/31/18 at 13:30 Glucose (Glutose) 22.5 gm Q15M PRN PO DECREASED GLUCOSE; Start 07/31/18 at 13:30 Dextrose (D50w Syringe) 25 ml Q15M PRN IV DECREASED GLUCOSE; Start 07/31/18 at 13:30 Dextrose (D50w Syringe) 50 ml Q15M PRN IV DECREASED GLUCOSE; Start 07/31/18 at 13:30 Glucagon (Glucagen) 1 mg Q15M PRN IM DECREASED GLUCOSE; Start 07/31/18 at 13:30 Glucose (Glutose) 15 gm Q15M PRN BUCCAL DECREASED GLUCOSE; Start 07/31/18 at 13:30 Allergies: Coded Allergies: No Known Allergy (Unverified , 07/31/18) Social History Alcohol Use: none Smoking Status: Never smoker Exam/Review of Systems Exam Vitals Vital Signs Date Temp Pulse Resp B/P (MAP) Pulse Ox O2 O2 Flow FiO2 Time Delivery Rate 07/31/18 98.9 72 18 142/67 96 Room Air 13:35 (92) 07/31/18 2 08:50 Constitutional: alert, oriented Head: normocephalic, atraumatic ENMT: mucosa pink and moist Neck: supple; No jvd Respiratory: clear to auscultation Cardiovascular: regular rate and rhythm Gastrointestinal: soft Extremities: No edema Results Result Diagram: 07/31/18 0839 07/31/18 0839 Results 24hrs Laboratory Tests Test 07/31/18 08:39 07/31/18 11:10 White Blood Count 4.5 L Red Blood Count 3.50 L Hemoglobin 11.2 L Hematocrit 34.4 L Mean Corpuscular Volume 98.3 Mean Corpuscular Hemoglobin 32.0 Mean Corpuscular Hemoglobin Concent 32.6 Red Cell Distribution Width 14.0 Platelet Count 106 L Mean Platelet Volume 11.4 H Immature Granulocytes % 0.700 H Neutrophils % 60.9 Lymphocytes % 23.9 Monocytes % 12.0 H Eosinophils % 1.8 Basophils % 0.7 Nucleated Red Blood Cells % 0.0 Immature Granulocytes # 0.030 Neutrophils # 2.8 Lymphocytes # 1.1 Monocytes # 0.5 Eosinophils # 0.1 Basophils # 0.0 Nucleated Red Blood Cells # 0.0 Prothrombin Time 13.0 14.7 Prothrombin Time Ratio 1.0 1.1 INR International Normalized Ratio 0.97 1.14 Activated Partial Thromboplast Time 34.3 33.7 Sodium Level 138 Potassium Level 3.4 L Chloride Level 97 Carbon Dioxide Level 30 Anion Gap 11 Blood Urea Nitrogen 25 H Creatinine 2.52 H Est Glomerular Filtrat Rate mL/min 19 L Glucose Level 163 Calcium Level 8.9 Total Bilirubin 0.2 Direct Bilirubin 0.00 Indirect Bilirubin 0.2 Aspartate Amino Transf (AST/SGOT) 28 Alanine Aminotransferase (ALT/SGPT) 21 Alkaline Phosphatase 75 Troponin I 0.053 Total Protein 7.1 Albumin 3.9 Globulin 3.20 Albumin/Globulin Ratio 1.21 Lipase 220 Free Thyroxine 1.23 Medications Medication Current Medications IV Flush (NS 3 ml) 3 ml PER PROTOCOL IV ; Start 07/31/18 at 11:00 Ondansetron HCl (Zofran Inj) 4 mg Q6H PRN IV NAUSEA/VOMITING; Start 07/31/18 at 11:00 Acetaminophen (Tylenol Tab) 650 mg Q6H PRN PO .PAIN 1-3 OR TEMP; Start 07/31/18 at 11:00 Acetaminophen/ Hydrocodone Bitart ([place] (5/325)) 1 tab Q6H PRN PO .MOD PAIN 4- 6; Start 07/31/18 at 11:00 Morphine Sulfate (morphine) 2 mg Q4H PRN IV .SEVERE PAIN 7-10; Start 07/31/18 at 11:00 Docusate Sodium (Colace) 100 mg Q12H PRN PO .CONSTIPATION; Start 07/31/18 at 11:00 Magnesium Hydroxide (Milk Of Mag) 30 ml DAILY PRN PO .CONSTIPATION; Start 07/31/18 at 11:00 Pantoprazole (Protonix Tab) 40 mg DAILY@06 PO ; Start 08/01/18 at 06:00 Lorazepam (Ativan) 0.5 mg Q6H PRN IV ANXIETY; Start 07/31/18 at 11:00 Albuterol/ Ipratropium (Duoneb) 3 ml Q4H RESP THERAPY PRN HHN SHORTNESS OF BREATH; Start 07/31/18 at 11:00 Hydralazine HCl (Apresoline) 10 mg Q6H PRN IV ELEVATED BLOOD PRESSURE; Start 07/31/18 at 11:00 Nitroglycerin (Nitroglycerin (Sl Tab) 0.4 Mg) 1 tab Q5M PRN SL ANGINA; Start 07/31/18 at 11:00 Diltiazem HCl 125 ml @ 5 mls/hr TITRATE IV ; Start 07/31/18 at 11:00 Apixaban (Eliquis) 5 mg BID PO ; Start 07/31/18 at 21:00 Carvedilol (Coreg) 25 mg BID PO ; Start 07/31/18 at 21:00 Cyanocobalamin (Vitamin B12) 500 mcg DAILY PO ; Start 08/01/18 at 09:00 Folic Acid (Folic Acid) 1 mg DAILY PO ; Start 08/01/18 at 09:00 Insulin Glargine (Lantus) 50 units DAILY SC ; Start 08/01/18 at 09:00 Levothyroxine Sodium (Synthroid) 175 mcg BEFORE BREAKFAST PO ; Start 08/01/18 at 07:00 Pregabalin (Lyrica) 50 mg BID PO ; Start 07/31/18 at 21:00 Sevelamer Carbonate (Renvela) 2.4 gm WITH MEALS PO ; Start 07/31/18 at 18:00 Miscellaneous Information 1 ea NOTE XX ; Start 07/31/18 at 13:30 Glucose (Glutose) 15 gm Q15M PRN PO DECREASED GLUCOSE; Start 07/31/18 at 13:30 Glucose (Glutose) 22.5 gm Q15M PRN PO DECREASED GLUCOSE; Start 07/31/18 at 13:30 Dextrose (D50w Syringe) 25 ml Q15M PRN IV DECREASED GLUCOSE; Start 07/31/18 at 13:30 Dextrose (D50w Syringe) 50 ml Q15M PRN IV DECREASED GLUCOSE; Start 07/31/18 at 13:30 Glucagon (Glucagen) 1 mg Q15M PRN IM DECREASED GLUCOSE; Start 07/31/18 at 13:30 Glucose (Glutose) 15 gm Q15M PRN BUCCAL DECREASED GLUCOSE; Start 07/31/18 at 13:30 CARY SEGAL MD Jul 31, 2018 15:10
[2018-07-31 16:12] VITALS: PULSE 69
[2018-07-31] MEDS: INSULIN ASPART [NOVOLOG] 3 ML PEN SC SCH ×2 (17:45→21:00)
[2018-07-31] MEDS: SEVELAMER CARBONATE 2.4 GM PKT PO SCH (17:49)
[2018-07-31 19:48] VITALS: BP 139/60; PULSE 72; RESP 17
[2018-07-31 20:00] VITALS: PULSE 68
--- NOTE | 2018-07-31 20:13 | CONS ---
DATE OF ADMISSION: 07/31/2018 DATE OF CONSULTATION: 07/31/2018 TYPE OF CONSULTATION: Cardiology. REFERRING PHYSICIAN: Elvia Zuleta MD REASON FOR EVALUATION: Atrial fibrillation. HISTORY OF PRESENT ILLNESS: Ms. Benitez is a pleasant 68-year-old woman, a patient of Dr. Chun miramontes [facility], with a history of hypertension, dyslipidemia, history of pacemaker, hist ory of end-stage renal disease on hemodialysis and also history of paroxysmal atrial fibrillation on Eliquis who comes to the hospital now for evaluation of atrial fibrillation with rapid ventricular re sponse. The patient was in dialysis which was almost complete when she felt flush and went into atri al fibrillation. The patient had prior episodes of atrial fibrillation for which she is being treate d with Dr. Elias. She currently converted to sinus rhythm. For now, the patient is hemodynamically st able. She is fully anticoagulated with her Eliquis and she feels well. As such, the patient has an appointment with Dr. Elias for outpatient evaluation. I think if patient is stable and she ruled out f or acute myocardial infarction, it would not be unreasonable to discharge the patient home in the car e of Dr. Elias. She is hemodynamically stable. PAST MEDICAL HISTORY: 1. Hypertension. 2. Dyslipidemia. 3. History of paroxysmal atrial fibrillation. 4. History of pacemaker placement. 5. History of end-stage renal disease on hemodialysis. 6. History of obesity. ALLERGIES: NO KNOWN DRUG ALLERGIES. SOCIAL HISTORY: The patient does not smoke, does not drink, and does not use drugs. FAMILY HISTORY: Negative for sudden cardiac or premature coronary artery disease. MEDICATIONS: The patient is on: 1. ____. 2. Folic acid. 3. Insulin on a sliding scale. 4. Eliquis 5 mg p.o. b.i.d. 5. Coreg 25 mg p.o. b.i.d. 6. Lyrica. 7. Morphine. 8. Hydralazine. 9. Nitroglycerin. 10. Diltiazem as needed. REVIEW OF SYSTEMS: CONSTITUTIONAL: No fevers, no chills. Episodes of a flush feeling with tachycardia. HEENT: No changes in vision or hearing. CARDIAC: Atrial fibrillation with rapid ventricular response. RESPIRATORY: Shortness of breath. GASTROINTESTINAL: No nausea, vomiting, diarrhea or constipation. GENITOURINARY: No dysuria or hematuria. NEUROLOGIC: No focal neurologic deficit. HEMATOLOGIC: History of secondary hypercoagulable state. PSYCHIATRIC: No history of psychiatric illness. PHYSICAL EXAMINATION: VITAL SIGNS: Temperature is 98.2; heart rate is 72 now, likely paced; blood pressure is 91/80. GENERAL: She is well-nourished woman in no acute distress, alert and oriented x3, aware of her condi tion. HEAD: Normocephalic, atraumatic. Eyes are anicteric. NECK: Supple. JVD is 6 cm. There is no lymphadenopathy. HEART: Soft holosystolic murmur. PMI is minimally displaced. There is no S3. LUNGS: Coarse at the bases. ABDOMEN: Nondistended. Bowel sounds are present. There is no hepatosplenomegaly. GENITOURINARY: Intact. EXTREMITIES: No cyanosis or clubbing. Trace edema. LEFT CHEST: She has a pacer site, well healed. LABORATORY DATA: White blood cell count 4.5, hemoglobin ____, platelets 116. INR is 1.1. Sodium 13 0, potassium 3.4, BUN is 25, creatinine 2.5. Troponin is negative at 0.053. ASSESSMENT AND PLAN: 1. Atrial fibrillation. The patient has history of paroxysmal atrial fibrillation, now converted to sinus rhythm. Continue current therapy for now. 2. Secondary hypercoaguable state. The patient is on Eliquis 5 mg p.o. b.i.d. I asked the patient about her dosing and she said that Dr. Elias feels at 5 b.i.d. The 5 mg p.o. b.i.d. is appropriate. T he patient will see Dr. Elias on Thursday and I am not going to change the therapy now. 3. Hypertension. Blood pressure well optimized now. Continue to adjust medications as needed. 4. Pacemaker appears to be with normal function. Continue to follow. Site appears to be well heale d. 5. Diabetes. Continue diabetic optimization care per primary team. I would like to thank Dr. Zuleta for referring this patient for my evaluation. Dictated By: DAVID BUSH MD ML/MARIALUISA Conf#: [id number] DID#: [id number] CC: ELVIA ZULETA;*End*
[2018-07-31] MEDS: APIXABAN 5 MG TABLET PO SCH (21:00)
[2018-07-31] MEDS: PREGABALIN 50 MG CAP PO SCH (21:00)
[2018-08-01] VITALS (12 sets, daily range): BP systolic 132–192; BP diastolic 64–80; PULSE 59–78; RESP 17–20
[2018-08-01] MEDS ORDERED: ACCU-CHEK XX SCH (02:00)
[2018-08-01] MEDS ORDERED: PANTOPRAZOLE (EC) 40 MG TAB PO SCH (06:00)
[2018-08-01] MEDS ORDERED: LEVOTHYROXINE 175 MCG TAB PO SCH (07:00)
[2018-08-01] MEDS: SEVELAMER CARBONATE 2.4 GM PKT PO SCH ×2 (07:46→11:57)
[2018-08-01] MEDS: INSULIN ASPART [NOVOLOG] 3 ML PEN SC SCH ×2 (07:51→11:58)
[2018-08-01] MEDS: PREGABALIN 50 MG CAP PO SCH (08:07)
[2018-08-01] MEDS: APIXABAN 5 MG TABLET PO SCH (08:08)
[2018-08-01] MEDS ORDERED: SODIUM CHLORIDE 0.9% 1L BAG IV PRN (09:00)
[2018-08-01] MEDS ORDERED: INSULIN GLARGINE [LANTus] (100 UNITS/ML) SYG SC SCH (09:00)
[2018-08-01] MEDS ORDERED: CYANOCOBALAMIN 500 MCG TAB PO SCH (09:00)
[2018-08-01] MEDS ORDERED: ALBUMIN HUMAN 25% 100 ML IV PRN (09:00)
[2018-08-01] MEDS ORDERED: FOLIC ACID 1 MG TAB PO SCH (09:00)
--- NOTE | 2018-08-01 10:09 | CONS ---
Consultation Date/Type/Reason Admit Date/Time Jul 31, 2018 at 10:51 Initial Consult Date 07/31/18 Type of Consult NEPHROLOGY Requesting Provider: ELVIA ZULETA Date/Time of Note DATE: 08/01/18 TIME: 10:08 Exam/Review of Systems Exam Vitals Vital Signs Date Temp Pulse Resp B/P (MAP) Pulse Ox O2 O2 Flow FiO2 Time Delivery Rate 08/01/18 69 08:23 08/01/18 98.2 20 171/71 97 07:42 (104) 07/31/18 Room Air 15:06 07/31/18 2 08:50 Intake and Output 07/31/18 07/31/18 08/01/18 1515:00 23:00 07:00 IntakeIntake Total 300 ml 550 ml BalanceBalance 300 ml 550 ml Results Result Diagram: 08/01/18 0515 08/01/18 0515 Results 24hrs Laboratory Tests Test 07/31/18 11:10 07/31/18 15:23 07/31/18 17:30 07/31/18 17:44 Prothrombin Time 14.7 Prothrombin Time Ratio 1.1 INR International 1.14 Normalized Ratio Activated 33.7 Partial Thromboplast Time Free Thyroxine 1.23 Troponin I 0.156 *H Urine Eosinophils % 0.0 Urine Random Creatinine 85.27 Urine Random Sodium 116 H Urine Protein/Creatinine 1.88 Ratio Urine Total Protein 161.0 H Bedside Glucose 94 Test 07/31/18 21:02 08/01/18 05:15 08/01/18 07:38 08/01/18 08:55 Bedside Glucose 139 146 White Blood Count 3.7 L Red Blood Count 3.30 L Hemoglobin 10.4 L Hematocrit 33.2 L Mean Corpuscular Volume 100.6 Mean Corpuscular 31.5 Hemoglobin Mean Corpuscular 31.3 L Hemoglobin Concent Red Cell Distribution 13.9 Width Platelet Count 78 #L Mean Platelet Volume 12.0 H Immature Granulocytes % 0.500 H Neutrophils % 51.5 Lymphocytes % 30.4 Monocytes % 14.1 H Eosinophils % 3.0 Basophils % 0.5 Nucleated Red Blood 0.0 Cells % Immature Granulocytes # 0.020 Neutrophils # 1.9 Lymphocytes # 1.1 Monocytes # 0.5 Eosinophils # 0.1 Basophils # 0.0 Nucleated Red Blood 0.0 Cells # Sodium Level 141 Potassium Level 4.1 Chloride Level 98 Carbon Dioxide Level 32 H Anion Gap 11 Blood Urea Nitrogen 46 #H Creatinine 4.66 #H Est Glomerular Filtrat 9 L Rate mL/min Glucose Level 120 # Hemoglobin A1c 6.1 H Uric Acid 4.7 Calcium Level 9.0 Phosphorus Level 5.2 H Magnesium Level 2.1 Creatine Kinase 56 Triglycerides Level 256 H Cholesterol Level 255 H LDL Cholesterol, 158 Calculated HDL Cholesterol 46 Cholesterol/HDL Ratio 5.5 Thyroid Stimulating 6.180 H Hormone (TSH) Troponin I 0.157 *H Medications Medication Current Medications IV Flush (NS 3 ml) 3 ml PER PROTOCOL IV ; Start 07/31/18 at 11:00 Ondansetron HCl (Zofran Inj) 4 mg Q6H PRN IV NAUSEA/VOMITING; Start 07/31/18 at 11:00 Acetaminophen (Tylenol Tab) 650 mg Q6H PRN PO .PAIN 1-3 OR TEMP; Start 07/31/18 at 11:00 Acetaminophen/ Hydrocodone Bitart ([place] (5/325)) 1 tab Q6H PRN PO .MOD PAIN 4- 6; Start 07/31/18 at 11:00 Morphine Sulfate (morphine) 2 mg Q4H PRN IV .SEVERE PAIN 7-10; Start 07/31/18 at 11:00 Docusate Sodium (Colace) 100 mg Q12H PRN PO .CONSTIPATION; Start 07/31/18 at 11:00 Magnesium Hydroxide (Milk Of Mag) 30 ml DAILY PRN PO .CONSTIPATION; Start 07/31/18 at 11:00 Pantoprazole (Protonix Tab) 40 mg DAILY@06 PO Last administered on 08/01/18at 06:47; Admin Dose 40 MG; Start 08/01/18 at 06:00 Lorazepam (Ativan) 0.5 mg Q6H PRN IV ANXIETY; Start 07/31/18 at 11:00 Albuterol/ Ipratropium (Duoneb) 3 ml Q4H RESP THERAPY PRN HHN SHORTNESS OF BREATH; Start 07/31/18 at 11:00 Hydralazine HCl (Apresoline) 10 mg Q6H PRN IV ELEVATED BLOOD PRESSURE; Start 07/31/18 at 11:00 Nitroglycerin (Nitroglycerin (Sl Tab) 0.4 Mg) 1 tab Q5M PRN SL ANGINA; Start 07/31/18 at 11:00 Diltiazem HCl 125 ml @ 5 mls/hr TITRATE IV ; Start 07/31/18 at 11:00 Apixaban (Eliquis) 5 mg BID PO Last administered on 08/01/18at 08:08; Admin Dose 5 MG; Start 07/31/18 at 21:00 Carvedilol (Coreg) 25 mg BID PO Last administered on 08/01/18at 08:07; Admin Dose 25 MG; Start 07/31/18 at 21:00 Cyanocobalamin (Vitamin B12) 500 mcg DAILY PO Last administered on 08/01/18at 08:07; Admin Dose 500 MCG; Start 08/01/18 at 09:00 Folic Acid (Folic Acid) 1 mg DAILY PO Last administered on 08/01/18at 08:08; Admin Dose 1 MG; Start 08/01/18 at 09:00 Insulin Glargine (Lantus) 50 units DAILY SC Last administered on 08/01/18at 08:29; Admin Dose 50 UNITS; Start 08/01/18 at 09:00 Levothyroxine Sodium (Synthroid) 175 mcg BEFORE BREAKFAST PO Last administered on 08/01/18at 06:47; Admin Dose 175 MCG; Start 08/01/18 at 07:00 Pregabalin (Lyrica) 50 mg BID PO Last administered on 08/01/18at 08:07; Admin Dose 50 MG; Start 07/31/18 at 21:00 Sevelamer Carbonate (Renvela) 2.4 gm WITH MEALS PO ; Start 07/31/18 at 18:00 Miscellaneous Information 1 ea NOTE XX ; Start 07/31/18 at 13:30 Glucose (Glutose) 15 gm Q15M PRN PO DECREASED GLUCOSE; Start 07/31/18 at 13:30 Glucose (Glutose) 22.5 gm Q15M PRN PO DECREASED GLUCOSE; Start 07/31/18 at 13:30 Dextrose (D50w Syringe) 25 ml Q15M PRN IV DECREASED GLUCOSE; Start 07/31/18 at 13:30 Dextrose (D50w Syringe) 50 ml Q15M PRN IV DECREASED GLUCOSE; Start 07/31/18 at 13:30 Glucagon (Glucagen) 1 mg Q15M PRN IM DECREASED GLUCOSE; Start 07/31/18 at 13:30 Glucose (Glutose) 15 gm Q15M PRN BUCCAL DECREASED GLUCOSE; Start 07/31/18 at 13:30 Diagnostic Test (Pha) (Accu-Chek) 1 ea 02 XX ; Start 08/01/18 at 02:00 Insulin Aspart (Novolog Insulin Pen) NOVOLOG *MILD* ALGORITHM WITH MEALS BEDTIME SC Last administered on 08/01/18at 07:51; Admin Dose 1 UNIT; Start 07/31/18 at 18:00 Miscellaneous Information Patients own medicat... BID@10,16 XX ; Start 08/01/18 at 10:00 Albumin Human 100 ml @ 100 mls/hr WITH DIALYSIS PRN IV SBP <90 DURING DIALYSIS; Start 08/01/18 at 09:00 Sodium Chloride (NS) -To prime the dialy... DIRECTED FOR HD PRN IV HD; Start 08/01/18 at 09:00 ALVINO COTO MD Aug 01, 2018 10:09
--- NOTE | 2018-08-01 10:37 | PN ---
Date/Time of Note Date/Time of Note DATE: 08/01/18 TIME: 10:32 Assessment/Plan VTE Prophylaxis Risk score (from Ns)>0 risk: 5 SCD applied (from Ns): No SCD contraindicated: other Pharmacological prophylaxis: apixaban Lines/Catheters IV [facility]ter Type [facility]from [facility] [place] Urinary Cath still in place: No Assessment/Plan Hospital Course S: Patient denies chest pain, now rate controlled, seen by cardiology and renal teams yesterday. O: VS- see below PHYSICAL EXAMINATION: GENERAL: lying in bed, answering questions appropriately, in no acute distress. HEENT: Pupils equal, round, reactive to light. Extraocular muscles are intact. NECK: Supple, no thyromegaly. LUNGS: Clear to auscultation bilaterally. CARDIOVASCULAR: Irregularly irregular heart rate, tachycardic. No rubs or gallops. ABDOMEN: Soft, nontender, nondistended. Normal bowel sounds. No rebound or guarding. MUSCULOSKELETAL: No lower extremity edema bilaterally. NEUROLOGIC: No focal deficits. ASSESSMENT AND PLAN: 68-year-old female coming in with palpitations, likely secondary to atrial fibrillation with rapid ventricular response. 1. Palpitations-resolved now, secondary to atrial fibrillation with rapid ventricular response which has resolved now. -Continue p.o. Coreg, Eliquis, follow-up recommendations from cardiology consult. 2. Elevated troponins -patient denies chest pain. Unclear if this is true for anemia versus secondary elevation in troponin from A. fib with RVR, versus non- ST elevation AL -Continue current cardiac medications including high-dose aspirin, statin, oxygen supplementation, morphine as needed, nitroglycerin as needed -Follow-up cardiology recommendations 3. End-stage renal disease. -Monitor, continue dialysis per renal recommendations. - Continue current renal Medications the patient takes at home. 4. History of hypertension. Blood pressure is stable. - Continue current cardiac medications and monitor. 5. Gastrointestinal prophylaxis with PPI. 6. Deep venous thrombosis prophylaxis- Eliquis. - Consider PT consult as well. Result Diagram: 08/01/18 0515 08/01/18 0515 Results 24hrs Laboratory Tests Test 07/31/18 11:10 07/31/18 15:23 07/31/18 17:30 07/31/18 17:44 Prothrombin Time 14.7 Prothrombin Time Ratio 1.1 INR International 1.14 Normalized Ratio Activated 33.7 Partial Thromboplast Time Free Thyroxine 1.23 Troponin I 0.156 *H Urine Eosinophils % 0.0 Urine Random Creatinine 85.27 Urine Random Sodium 116 H Urine Protein/Creatinine 1.88 Ratio Urine Total Protein 161.0 H Bedside Glucose 94 Test 07/31/18 21:02 08/01/18 05:15 08/01/18 07:38 08/01/18 08:55 Bedside Glucose 139 146 White Blood Count 3.7 L Red Blood Count 3.30 L Hemoglobin 10.4 L Hematocrit 33.2 L Mean Corpuscular Volume 100.6 Mean Corpuscular 31.5 Hemoglobin Mean Corpuscular 31.3 L Hemoglobin Concent Red Cell Distribution 13.9 Width Platelet Count 78 #L Mean Platelet Volume 12.0 H Immature Granulocytes % 0.500 H Neutrophils % 51.5 Lymphocytes % 30.4 Monocytes % 14.1 H Eosinophils % 3.0 Basophils % 0.5 Nucleated Red Blood 0.0 Cells % Immature Granulocytes # 0.020 Neutrophils # 1.9 Lymphocytes # 1.1 Monocytes # 0.5 Eosinophils # 0.1 Basophils # 0.0 Nucleated Red Blood 0.0 Cells # Sodium Level 141 Potassium Level 4.1 Chloride Level 98 Carbon Dioxide Level 32 H Anion Gap 11 Blood Urea Nitrogen 46 #H Creatinine 4.66 #H Est Glomerular Filtrat 9 L Rate mL/min Glucose Level 120 # Hemoglobin A1c 6.1 H Uric Acid 4.7 Calcium Level 9.0 Phosphorus Level 5.2 H Magnesium Level 2.1 Creatine Kinase 56 Triglycerides Level 256 H Cholesterol Level 255 H LDL Cholesterol, 158 Calculated HDL Cholesterol 46 Cholesterol/HDL Ratio 5.5 Thyroid Stimulating 6.180 H Hormone (TSH) Troponin I 0.157 *H Exam/Review of Systems Exam Vitals Vital Signs Date Temp Pulse Resp B/P (MAP) Pulse Ox O2 O2 Flow FiO2 Time Delivery Rate 08/01/18 69 08:23 08/01/18 98.2 20 171/71 97 07:42 (104) 07/31/18 Room Air 15:06 07/31/18 2 08:50 Intake and Output 07/31/18 07/31/18 08/01/18 1515:00 23:00 07:00 IntakeIntake Total 300 ml 550 ml BalanceBalance 300 ml 550 ml Results Results 24hrs Laboratory Tests Test 07/31/18 11:10 07/31/18 15:23 07/31/18 17:30 07/31/18 17:44 Prothrombin Time 14.7 Prothrombin Time Ratio 1.1 INR International 1.14 Normalized Ratio Activated 33.7 Partial Thromboplast Time Free Thyroxine 1.23 Troponin I 0.156 *H Urine Eosinophils % 0.0 Urine Random Creatinine 85.27 Urine Random Sodium 116 H Urine Protein/Creatinine 1.88 Ratio Urine Total Protein 161.0 H Bedside Glucose 94 Test 07/31/18 21:02 08/01/18 05:15 08/01/18 07:38 08/01/18 08:55 Bedside Glucose 139 146 White Blood Count 3.7 L Red Blood Count 3.30 L Hemoglobin 10.4 L Hematocrit 33.2 L Mean Corpuscular Volume 100.6 Mean Corpuscular 31.5 Hemoglobin Mean Corpuscular 31.3 L Hemoglobin Concent Red Cell Distribution 13.9 Width Platelet Count 78 #L Mean Platelet Volume 12.0 H Immature Granulocytes % 0.500 H Neutrophils % 51.5 Lymphocytes % 30.4 Monocytes % 14.1 H Eosinophils % 3.0 Basophils % 0.5 Nucleated Red Blood 0.0 Cells % Immature Granulocytes # 0.020 Neutrophils # 1.9 Lymphocytes # 1.1 Monocytes # 0.5 Eosinophils # 0.1 Basophils # 0.0 Nucleated Red Blood 0.0 Cells # Sodium Level 141 Potassium Level 4.1 Chloride Level 98 Carbon Dioxide Level 32 H Anion Gap 11 Blood Urea Nitrogen 46 #H Creatinine 4.66 #H Est Glomerular Filtrat 9 L Rate mL/min Glucose Level 120 # Hemoglobin A1c 6.1 H Uric Acid 4.7 Calcium Level 9.0 Phosphorus Level 5.2 H Magnesium Level 2.1 Creatine Kinase 56 Triglycerides Level 256 H Cholesterol Level 255 H LDL Cholesterol, 158 Calculated HDL Cholesterol 46 Cholesterol/HDL Ratio 5.5 Thyroid Stimulating 6.180 H Hormone (TSH) Troponin I 0.157 *H Medications Medication Current Medications IV Flush (NS 3 ml) 3 ml PER PROTOCOL IV ; Start 07/31/18 at 11:00 Ondansetron HCl (Zofran Inj) 4 mg Q6H PRN IV NAUSEA/VOMITING; Start 07/31/18 at 11:00 Acetaminophen (Tylenol Tab) 650 mg Q6H PRN PO .PAIN 1-3 OR TEMP; Start 07/31/18 at 11:00 Acetaminophen/ Hydrocodone Bitart ([place] (5/325)) 1 tab Q6H PRN PO .MOD PAIN 4- 6; Start 07/31/18 at 11:00 Morphine Sulfate (morphine) 2 mg Q4H PRN IV .SEVERE PAIN 7-10; Start 07/31/18 at 11:00 Docusate Sodium (Colace) 100 mg Q12H PRN PO .CONSTIPATION; Start 07/31/18 at 11:00 Magnesium Hydroxide (Milk Of Mag) 30 ml DAILY PRN PO .CONSTIPATION; Start 07/31/18 at 11:00 Pantoprazole (Protonix Tab) 40 mg DAILY@06 PO Last administered on 08/01/18at 06:47; Admin Dose 40 MG; Start 08/01/18 at 06:00 Lorazepam (Ativan) 0.5 mg Q6H PRN IV ANXIETY; Start 07/31/18 at 11:00 Albuterol/ Ipratropium (Duoneb) 3 ml Q4H RESP THERAPY PRN HHN SHORTNESS OF BREATH; Start 07/31/18 at 11:00 Hydralazine HCl (Apresoline) 10 mg Q6H PRN IV ELEVATED BLOOD PRESSURE; Start 07/31/18 at 11:00 Nitroglycerin (Nitroglycerin (Sl Tab) 0.4 Mg) 1 tab Q5M PRN SL ANGINA; Start 07/31/18 at 11:00 Diltiazem HCl 125 ml @ 5 mls/hr TITRATE IV ; Start 07/31/18 at 11:00 Apixaban (Eliquis) 5 mg BID PO Last administered on 08/01/18at 08:08; Admin Dose 5 MG; Start 07/31/18 at 21:00 Carvedilol (Coreg) 25 mg BID PO Last administered on 08/01/18 08:07; Admin Dose 25 MG; Start 07/31/18 at 21:00 Cyanocobalamin (Vitamin B12) 500 mcg DAILY PO Last administered on 08/01/18at 08:07; Admin Dose 500 MCG; Start 08/01/18 at 09:00 Folic Acid (Folic Acid) 1 mg DAILY PO Last administered on 08/01/18at 08:08; Admin Dose 1 MG; Start 08/01/18 at 09:00 Insulin Glargine (Lantus) 50 units DAILY SC Last administered on 08/01/18at 08:29; Admin Dose 50 UNITS; Start 08/01/18 at 09:00 Levothyroxine Sodium (Synthroid) 175 mcg BEFORE BREAKFAST PO Last administered on 08/01/18at 06:47; Admin Dose 175 MCG; Start 08/01/18 at 07:00 Pregabalin (Lyrica) 50 mg BID PO Last administered on 08/01/18at 08:07; Admin Dose 50 MG; Start 07/31/18 at 21:00 Sevelamer Carbonate (Renvela) 2.4 gm WITH MEALS PO ; Start 07/31/18 at 18:00 Miscellaneous Information 1 ea NOTE XX ; Start 07/31/18 at 13:30 Glucose (Glutose) 15 gm Q15M PRN PO DECREASED GLUCOSE; Start 07/31/18 at 13:30 Glucose (Glutose) 22.5 gm Q15M PRN PO DECREASED GLUCOSE; Start 07/31/18 at 13:30 Dextrose (D50w Syringe) 25 ml Q15M PRN IV DECREASED GLUCOSE; Start 07/31/18 at 13:30 Dextrose (D50w Syringe) 50 ml Q15M PRN IV DECREASED GLUCOSE; Start 07/31/18 at 13:30 Glucagon (Glucagen) 1 mg Q15M PRN IM DECREASED GLUCOSE; Start 07/31/18 at 13:30 Glucose (Glutose) 15 gm Q15M PRN BUCCAL DECREASED GLUCOSE; Start 07/31/18 at 13:30 Diagnostic Test (Pha) (Accu-Chek) 1 ea 02 XX ; Start 08/01/18 at 02:00 Insulin Aspart (Novolog Insulin Pen) NOVOLOG *MILD* ALGORITHM WITH MEALS BEDTIME SC Last administered on 08/01/18at 07:51; Admin Dose 1 UNIT; Start 07/31/18 at 18:00 Miscellaneous Information Patients own medicat... BID@10,16 XX ; Start 08/01/18 at 10:00 ELVIA ZULETA Aug 01, 2018 10:37
--- NOTE | 2018-08-01 10:39 | PDOCDIS ---
Discharge Instructions CONDITION [id number] Patient Condition: [id number] Stable HOME CARE INSTRUCTIONS: [id number] Diet Instructions: [id number] Low Fat /Cholesterol ACTIVITY: [id number] Activity Restrictions: [id number] Slowly Increase Activity Rest between Activity Avoid heavy lifting FOLLOW UP/APPOINTMENTS Follow-up Plan Please keep your appointment with your green building materials designer tomorrow Thursday, August 02, 2018, take your medications as prescribed. ELVIA ZULETA Aug 01, 2018 10:39
[2018-08-01] MEDS ORDERED: ATOR20TA38 PO (10:40)
--- NOTE | 2018-08-01 10:44 | DS ---
Date/Time of Note Date/Time of Note DATE: 08/01/18 TIME: 10:40 Discharge Summary Admission/Discharge Info Admit Date/Time Jul 31, 2018 at 10:51 Discharge Date/Time Patient Condition: Stable Hx of Present Illness 68-year-old female with prior history of atrial fibrillation on Eliquis at home, hypertension, end-stage renal disease on dialysis, possible diabetes who pre sents with palpitations. The patient was at dialysis earlier today. She completed about 3 hours of dialysis and felt some palpitations. She says she has not felt this before. No upper or lower GI bleeding, fevers or chills, diarrhea, constipation, nausea or vomiting. There was concern, so she was brought to the ER and when she came in, she was found with elevated heart rate of 115 to 120 range and signs of atrial fibrillation with RVR. She was given Cardizem in the ER. Presently, the heart rate is still elevated; however, the 115 range, but she is having slightly less palpitations. Hospital Course Patient was admitted to telemetry floor. Seen by renal and cardiology teams during his hospital stay. Her renal function was monitored. Lab testing. No indications for dialysis at this time since she just had one performed right before admission. Regarding her atrial fibrillation with RVR, this converted to normal sinus rhythm shortly after patient was brought to the telemetry floor. Therefore she was just continued on her home p.o. beta-renate and other medications, so Cardizem drip was started. Heart rate remained stable. Her first troponin was negative, however second and third troponins are slightly elevated. Patient had no significant known EKG changes, no chest pain symptoms. She was able to ambulate, tolerated p.o. diet. She continued on Eliquis for A. fib which she takes at home. She was going to be evaluated again by cardiology team who felt like this was likely a type II event elevated troponin, demand ischemia. After they evaluate her today, patient likely will be discharged home today in improved condition. She does have another cardiology follows up with as an outpatient Dr Elias, and she will see him in the clinic in 24 hours, Thursday, August 02, 2017. See below for full list of discharge medications. She was found with high cholesterol levels and we started her on statin medication for that. Home Meds Active Scripts Atorvastatin Calcium* (Atorvastatin Calcium*) 20 Mg Tablet, 20 MG PO QHS, #30 TAB Prov:ELVIA ZULETA S. 08/01/18 Reported Medications Insulin Glargine* (Lantus*) 100 Unit/Ml Soln, 10-30 UNIT SC QHS, #1 VIAL 07/31/18 Levothyroxine Sodium* (Levothyroxine Sodium*) 175 Mcg Tablet, 175 MCG PO BEFORE BREAKFAST, #30 TAB 07/31/18 Sevelamer Carbonate* (Renvela*) 2.4 Gm Powd.pack, 2.4 GM PO WITH MEALS, PACKET 07/31/18 Liraglutide (Victoza 3-Jericho) 0.6 Mg/0.1 Ml Pen.injctr, 1.8 MG SQ DAILY, SYR 07/31/18 Insulin Aspart* (Novolog Insulin Pen*) 100 Unit/Ml Soln, 0 SC .SLIDING SCALE AC, EA 07/31/18 Sertraline Hcl* (Sertraline Hcl*) 100 Mg Tablet, 100 MG PO DAILY, #30 TAB 07/31/18 Irbesartan* (Irbesartan*) 150 Mg Tablet, 150 MG PO DAILY, TAB 07/31/18 Ergocalciferol (Vitamin D2) (VITAMIN D2) 50,000 Unit Capsule, 80400 UNIT PO WEEKLY, CAP 07/31/18 Cyanocobalamin* (Vitamin B12*) 500 Mcg Tab, 500 MCG PO DAILY, TAB 07/31/18 Folic Acid* (Folic Acid*) 1 Mg Tablet, 1 MG PO DAILY, TAB 07/31/18 Apixaban* (Eliquis*) 5 Mg Tablet, 5 MG PO BID, TAB 07/31/18 Pregabalin* (Lyrica*) 50 Mg Capsule, 50 MG PO BID, CAP 07/31/18 Carvedilol* (Coreg*) 25 Mg Tablet, 25 MG PO BID, #60 TAB 07/31/18 Discontinued Reported Medications Insulin Glargine* (Lantus*) 100 Unit/Ml Soln, 50 UNIT SC DAILY, #1 VIAL 07/31/18 Follow-up Plan Please keep your appointment with your family intervention specialist tomorrow Thursday, August 02, 2018, take your medications as prescribed. Primary Care Provider Not On Staff Doctor Time spent on discharge: > 30 minutes Pending Labs Laboratory Tests Test 07/31/18 11:10 07/31/18 15:23 07/31/18 17:30 07/31/18 17:44 Prothrombin 14.7 Time Sec (11.9-14.9) Prothrombin 1.1 Time Ratio INR 1.14 International Normalized Rati o Activated 33.7 Partial Thrombo Sec (23.0-35.0) plast Time Free Thyroxine 1.23 ng/dl (0.78-2.4 4) Troponin I 0.156 ng/ml (0.000-0 .120) Urine 0.0 % (0-1.9) Eosinophils % Urine Random 85.27 Creatinine mg/dl (20-320) Urine Random 116 Sodium mmol/L (30-90) Urine 1.88 RATIO Protein/Creatin ine Ratio Urine Total 161.0 Protein mg/dl (0.0-11. 9) Bedside 94 Glucose mg/dL (70-220) Test 07/31/18 21:02 08/01/18 05:15 08/01/18 07:38 08/01/18 08:55 Bedside 139 146 Glucose mg/dL (70-220) mg/dL (70-220) White Blood 3.7 Count 10^3/ul (4.8-1 0.8) Red Blood 3.30 Count 10^6/ul (4.20- 5.40) Hemoglobin 10.4 g/dl (12.0-16. 0) Hematocrit 33.2 % (37.0-47.0) Mean 100.6 Corpuscular fl (82.0-101.0 Volume ) Mean 31.5 Corpuscular pg (29.0-33.0) Hemoglobin Mean 31.3 Corpuscular g/dl (32.0-37. Hemoglobin Conc 0) ent Red Cell 13.9 Distribution % (11.5-14.5) Width Platelet Count 78 10^3/UL (140-4 15) Mean Platelet 12.0 Volume fl (7.4-10.4) Immature 0.500 Granulocytes % % (0.001-0.429 ) Neutrophils % 51.5 % (39.0-77.0) Lymphocytes % 30.4 % (15.0-51.0) Monocytes % 14.1 % (0.0-11.0) Eosinophils % 3.0 % (0.0-7.0) Basophils % 0.5 % (0.0-2.0) Nucleated Red 0.0 Blood Cells % /100WBC (0.0-0 .0) Immature 0.020 Granulocytes # 10^3/ul (0.0-0 .031) Neutrophils # 1.9 10^3/ul (1.6-7 .5) Lymphocytes # 1.1 10^3/ul (0.8-2 .9) Monocytes # 0.5 10^3/ul (0.3-0 .9) Eosinophils # 0.1 10^3/ul (0.0-0 .5) Basophils # 0.0 10^3/ul (0.0-0 .1) Nucleated Red 0.0 Blood Cells # 10^3/ul (0.0-0 .0) Sodium Level 141 mmol/L (135-14 4) Potassium 4.1 Level mmol/L (3.5-5. 1) Chloride Level 98 mmol/L (97-110 ) Carbon Dioxide 32 Level mmol/L (21-31) Anion Gap 11 (5-13) Blood Urea 46 Nitrogen mg/dl (7-20) Creatinine 4.66 mg/dl (0.44-1. 00) Est Glomerular 9 mL/min (>60) Filtrat Rate mL/min Glucose Level 120 mg/dl (70-220) Hemoglobin A1c 6.1 % (0-5.9) Uric Acid 4.7 mg/dl (3.1-7.9 ) Calcium Level 9.0 mg/dl (8.4-10. 2) Phosphorus 5.2 Level mg/dl (2.5-4.9 ) Magnesium 2.1 Level mg/dl (1.7-2.5 ) Creatine 56 Kinase IU/L (23-200) Triglycerides 256 Level mg/dl (0-149) Cholesterol 255 Level mg/dl (100-200 ) LDL 158 mg/dl Cholesterol, Calculated HDL 46 Cholesterol mg/dl (33-92) Cholesterol/HDL 5.5 RATIO Ratio Thyroid 6.180 Stimulating MIU/L (0.465-4 Hormone (TSH) .680) Troponin I 0.157 ng/ml (0.000-0 .120) ELVIA ZULETA Aug 01, 2018 10:44
[2018-08-01] MEDS ORDERED: ATORVASTATIN 40 MG TAB PO ONE (11:00)
--- NOTE | 2018-08-01 12:33 | CONS ---
Consult Date/Type/Reason Admit Date/Time Jul 31, 2018 at 10:51 Initial Consult Date 07/31/18 Requesting Provider: ELVIA ZULETA Date/Time of Note DATE: 08/01/18 TIME: 12:30 Subjective NO acute events - in sinus now- no CP- pt palnned to be d/c - will see DR. Elias tomorrow - much better overall. ROS: No fever, no chills, no nausea, no vomiting, no diarrhea/constipation No recent weight changes No chest pain, no PND, no orthopnea No dizziness, blurred vision No thirst, no heat or cold intolerance Objective Vitals Vital Signs Date Temp Pulse Resp B/P (MAP) Pulse Ox O2 O2 Flow FiO2 Time Delivery Rate 08/01/18 98.2 63 20 162/71 94 11:15 (101) 07/31/18 Room Air 15:06 07/31/18 2 08:50 Intake and Output 07/31/18 07/31/18 08/01/18 1515:00 23:00 07:00 IntakeIntake Total 300 ml 550 ml BalanceBalance 300 ml 550 ml Exam General: WN/WD/NAD, AOx 3 HEENT: Unicetric/atraumatic/EOMI (follow commands) NECK: JVD elevated, no thyromegaly Lymph: no lymphadenopathy HEART: regular with no S3, II/ systolic murmur at apex LUNGS: Coarse sounds ABD: soft, NT, ND, +BS : Intact Neuro: non focal SKIN: chronic changes EXT: trace edema Results/Medications Result Diagram: 08/01/18 0515 08/01/18 0515 Results 24 hrs Laboratory Tests Test 07/31/18 15:23 07/31/18 17:30 07/31/18 17:44 07/31/18 21:02 Troponin I 0.156 *H Urine Eosinophils % 0.0 Urine Random Creatinine 85.27 Urine Random Sodium 116 H Urine Protein/Creatinine 1.88 Ratio Urine Total Protein 161.0 H Bedside Glucose 94 139 Test 08/01/18 05:15 08/01/18 07:38 08/01/18 08:55 08/01/18 11:57 White Blood Count 3.7 L Red Blood Count 3.30 L Hemoglobin 10.4 L Hematocrit 33.2 L Mean Corpuscular Volume 100.6 Mean Corpuscular 31.5 Hemoglobin Mean Corpuscular 31.3 L Hemoglobin Concent Red Cell Distribution 13.9 Width Platelet Count 78 #L Mean Platelet Volume 12.0 H Immature Granulocytes % 0.500 H Neutrophils % 51.5 Lymphocytes % 30.4 Monocytes % 14.1 H Eosinophils % 3.0 Basophils % 0.5 Nucleated Red Blood 0.0 Cells % Immature Granulocytes # 0.020 Neutrophils # 1.9 Lymphocytes # 1.1 Monocytes # 0.5 Eosinophils # 0.1 Basophils # 0.0 Nucleated Red Blood 0.0 Cells # Sodium Level 141 Potassium Level 4.1 Chloride Level 98 Carbon Dioxide Level 32 H Anion Gap 11 Blood Urea Nitrogen 46 #H Creatinine 4.66 #H Est Glomerular Filtrat 9 L Rate mL/min Glucose Level 120 # Hemoglobin A1c 6.1 H Uric Acid 4.7 Calcium Level 9.0 Phosphorus Level 5.2 H Magnesium Level 2.1 Creatine Kinase 56 Triglycerides Level 256 H Cholesterol Level 255 H LDL Cholesterol, 158 Calculated HDL Cholesterol 46 Cholesterol/HDL Ratio 5.5 Thyroid Stimulating 6.180 H Hormone (TSH) Bedside Glucose 146 123 Troponin I 0.157 *H Home Meds Active Scripts Atorvastatin Calcium* (Atorvastatin Calcium*) 20 Mg Tablet, 20 MG PO QHS, #30 TAB Prov:ELVIA ZULETA S. 08/01/18 Reported Medications Insulin Glargine* (Lantus*) 100 Unit/Ml Soln, 10-30 UNIT SC QHS, #1 VIAL 07/31/18 Levothyroxine Sodium* (Levothyroxine Sodium*) 175 Mcg Tablet, 175 MCG PO BEFORE BREAKFAST, #30 TAB 07/31/18 Sevelamer Carbonate* (Renvela*) 2.4 Gm Powd.pack, 2.4 GM PO WITH MEALS, PACKET 07/31/18 Liraglutide (Victoza 3-[place]icho) 0.6 Mg/0.1 Ml Pen.injctr, 1.8 MG SQ DAILY, SYR 07/31/18 Insulin Aspart* (Novolog Insulin Pen*) 100 Unit/Ml Soln, 0 SC .SLIDING SCALE AC, EA 07/31/18 Sertraline Hcl* (Sertraline Hcl*) 100 Mg Tablet, 100 MG PO DAILY, #30 TAB 07/31/18 Irbesartan* (Irbesartan*) 150 Mg Tablet, 150 MG PO DAILY, TAB 07/31/18 Ergocalciferol (Vitamin D2) (VITAMIN D2) 50,000 Unit Capsule, 70515 UNIT PO WEEKLY, CAP 07/31/18 Cyanocobalamin* (Vitamin B12*) 500 Mcg Tab, 500 MCG PO DAILY, TAB 07/31/18 Folic Acid* (Folic Acid*) 1 Mg Tablet, 1 MG PO DAILY, TAB 07/31/18 Apixaban* (Eliquis*) 5 Mg Tablet, 5 MG PO BID, TAB 07/31/18 Pregabalin* (Lyrica*) 50 Mg Capsule, 50 MG PO BID, CAP 07/31/18 Carvedilol* (Coreg*) 25 Mg Tablet, 25 MG PO BID, #60 TAB 07/31/18 Discontinued Reported Medications Insulin Glargine* (Lantus*) 100 Unit/Ml Soln, 50 UNIT SC DAILY, #1 VIAL 07/31/18 Medications Current Medications IV Flush (NS 3 ml) 3 ml PER PROTOCOL IV ; Start 07/31/18 at 11:00 Ondansetron HCl (Zofran Inj) 4 mg Q6H PRN IV NAUSEA/VOMITING; Start 07/31/18 at 11:00 Acetaminophen (Tylenol Tab) 650 mg Q6H PRN PO .PAIN 1-3 OR TEMP; Start 07/31/18 at 11:00 Acetaminophen/ Hydrocodone Bitart ([place] (5/325)) 1 tab Q6H PRN PO .MOD PAIN 4- 6; Start 07/31/18 at 11:00 Morphine Sulfate (morphine) 2 mg Q4H PRN IV .SEVERE PAIN 7-10; Start 07/31/18 at 11:00 Docusate Sodium (Colace) 100 mg Q12H PRN PO .CONSTIPATION; Start 07/31/18 at 11:00 Magnesium Hydroxide (Milk Of Mag) 30 ml DAILY PRN PO .CONSTIPATION; Start 07/31/18 at 11:00 Pantoprazole (Protonix Tab) 40 mg DAILY@06 PO Last administered on 08/01/18at 06:47; Admin Dose 40 MG; Start 08/01/18 at 06:00 Lorazepam (Ativan) 0.5 mg Q6H PRN IV ANXIETY; Start 07/31/18 at 11:00 Albuterol/ Ipratropium (Duoneb) 3 ml Q4H RESP THERAPY PRN HHN SHORTNESS OF BREATH; Start 07/31/18 at 11:00 Hydralazine HCl (Apresoline) 10 mg Q6H PRN IV ELEVATED BLOOD PRESSURE; Start 07/31/18 at 11:00 Nitroglycerin (Nitroglycerin (Sl Tab) 0.4 Mg) 1 tab Q5M PRN SL ANGINA; Start 07/31/18 at 11:00 Diltiazem HCl 125 ml @ 5 mls/hr TITRATE IV ; Start 07/31/18 at 11:00 Apixaban (Eliquis) 5 mg BID PO Last administered on 08/01/18 08:08; Admin Dose 5 MG; Start 07/31/18 at 21:00 Carvedilol (Coreg) 25 mg BID PO Last administered on 08/01/18at 08:07; Admin Dose 25 MG; Start 07/31/18 at 21:00 Cyanocobalamin (Vitamin B12) 500 mcg DAILY PO Last administered on 08/01/18at 08:07; Admin Dose 500 MCG; Start 08/01/18 at 09:00 Folic Acid (Folic Acid) 1 mg DAILY PO Last administered on 08/01/18at 08:08; Admin Dose 1 MG; Start 08/01/18 at 09:00 Insulin Glargine (Lantus) 50 units DAILY SC Last administered on 08/01/18 08:29; Admin Dose 50 UNITS; Start 08/01/18 at 09:00 Levothyroxine Sodium (Synthroid) 175 mcg BEFORE BREAKFAST PO Last administered on 08/01/18at 06:47; Admin Dose 175 MCG; Start 08/01/18 at 07:00 Pregabalin (Lyrica) 50 mg BID PO Last administered on 08/01/18 08:07; Admin D ose 50 MG; Start 07/31/18 at 21:00 Sevelamer Carbonate (Renvela) 2.4 gm WITH MEALS PO ; Start 07/31/18 at 18:00 Miscellaneous Information 1 ea NOTE XX ; Start 07/31/18 at 13:30 Glucose (Glutose) 15 gm Q15M PRN PO DECREASED GLUCOSE; Start 07/31/18 at 13:30 Glucose (Glutose) 22.5 gm Q15M PRN PO DECREASED GLUCOSE; Start 07/31/18 at 13:30 Dextrose (D50w Syringe) 25 ml Q15M PRN IV DECREASED GLUCOSE; Start 07/31/18 at 13:30 Dextrose (D50w Syringe) 50 ml Q15M PRN IV DECREASED GLUCOSE; Start 07/31/18 at 1 3:30 Glucagon (Glucagen) 1 mg Q15M PRN IM DECREASED GLUCOSE; Start 07/31/18 at 13:30 Glucose (Glutose) 15 gm Q15M PRN BUCCAL DECREASED GLUCOSE; Start 07/31/18 at 13:30 Diagnostic Test (Pha) (Accu-Chek) 1 ea 02 XX ; Start 08/01/18 at 02:00 Insulin Aspart (Novolog Insulin Pen) NOVOLOG *MILD* ALGORITHM WITH MEALS BEDTIME SC Last administered on 08/01/18at 07:51; Admin Dose 1 UNIT; Start 07/31/18 at 18:00 Miscellaneous Information Patients own medicat... BID@10,16 XX ; Start 08/01/18 at 10:00 Assessment/Plan Hospital Course (Demo Recall) 1. Atrial fibrillation. The patient has history of paroxysmal atrial fibrillation, now converted to sinus rhythm. Continue current therapy for now. In sinus nw. 2. Secondary hypercoaguable state. The patient is on Eliquis 5 mg p.o. b.i.d. I asked the patient about her dosing and she said that Dr. Elias feels at 5 b.i.d. The 5 mg p.o. b.i.d. is appropriate. The patient will see Dr. Elias on Thursday and I am not going to change the therapy now. 3. Hypertension. Blood pressure well optimized now. Continue to adjust medic ations as needed. 4. Pacemaker appears to be with normal function. Continue to follow. Site appears to be well healed. WEll Fxning. 5. Diabetes: Continue diabetic optimization care per primary team. 6. Eleavated troponins - mild - s/p a. fib with RVR - dipso palnned - outpt restrtatification with DR. Elias if needed. DAVID BUSH MD Aug 01, 2018 12:33
--- NOTE | 2018-08-01 14:25 | CONS ---
Assessment/Plan Assessment/Plan Assessment/Plan (Daily) # ESRD Next HD on Thu # AF with RVR History of same in the past On anticoagulation Now converted to NSR # Elevated troponin Likely demand ischemia She will follow up with Dr. Elias tomorrow # Diabetes Mellitus Continue usual insulin dosing Monitor blood sugars. We will follow up with her in the dialysis clinic Consultation Date/Type/Reason Admit Date/Time Jul 31, 2018 at 10:51 Initial Consult Date 07/31/18 Type of Consult Nephrology Requesting Provider: ELVIA ZULETA Date/Time of Note DATE: 08/01/18 TIME: 14:22 24 HR Interval Summary Free Text/Dictation No chest pain or palpitations Exam/Review of Systems Exam Vitals Vital Signs Date Temp Pulse Resp B/P (MAP) Pulse Ox O2 O2 Flow FiO2 Time Delivery Rate 08/01/18 60 12:34 08/01/18 98.2 20 162/71 94 11:15 (101) 07/31/18 Room Air 15:06 07/31/18 2 08:50 Intake and Output 07/31/18 07/31/18 08/01/18 1515:00 23:00 07:00 IntakeIntake Total 300 ml 550 ml BalanceBalance 300 ml 550 ml Constitutional: alert Neck: supple; No jvd Respiratory: clear to auscultation Cardiovascular: regular rate and rhythm Extremities: No edema Results Result Diagram: 08/01/18 0515 08/01/18 0515 Results 24hrs Laboratory Tests Test 07/31/18 15:23 07/31/18 17:30 07/31/18 17:44 07/31/18 21:02 Troponin I 0.156 *H Urine Eosinophils % 0.0 Urine Random Creatinine 85.27 Urine Random Sodium 116 H Urine Protein/Creatinine 1.88 Ratio Urine Total Protein 161.0 H Bedside Glucose 94 139 Test 08/01/18 05:15 08/01/18 07:38 08/01/18 08:55 08/01/18 11:57 White Blood Count 3.7 L Red Blood Count 3.30 L Hemoglobin 10.4 L Hematocrit 33.2 L Mean Corpuscular Volume 100.6 Mean Corpuscular 31.5 Hemoglobin Mean Corpuscular 31.3 L Hemoglobin Concent Red Cell Distribution 13.9 Width Platelet Count 78 #L Mean Platelet Volume 12.0 H Immature Granulocytes % 0.500 H Neutrophils % 51.5 Lymphocytes % 30.4 Monocytes % 14.1 H Eosinophils % 3.0 Basophils % 0.5 Nucleated Red Blood 0.0 Cells % Immature Granulocytes # 0.020 Neutrophils # 1.9 Lymphocytes # 1.1 Monocytes # 0.5 Eosinophils # 0.1 Basophils # 0.0 Nucleated Red Blood 0.0 Cells # Sodium Level 141 Potassium Level 4.1 Chloride Level 98 Carbon Dioxide Level 32 H Anion Gap 11 Blood Urea Nitrogen 46 #H Creatinine 4.66 #H Est Glomerular Filtrat 9 L Rate mL/min Glucose Level 120 # Hemoglobin A1c 6.1 H Uric Acid 4.7 Calcium Level 9.0 Phosphorus Level 5.2 H Magnesium Level 2.1 Creatine Kinase 56 Triglycerides Level 256 H Cholesterol Level 255 H LDL Cholesterol, 158 Calculated HDL Cholesterol 46 Cholesterol/HDL Ratio 5.5 Thyroid Stimulating 6.180 H Hormone (TSH) Bedside Glucose 146 123 Troponin I 0.157 *H Medications Medication Current Medications IV Flush (NS 3 ml) 3 ml PER PROTOCOL IV ; Start 07/31/18 at 11:00 Ondansetron HCl (Zofran Inj) 4 mg Q6H PRN IV NAUSEA/VOMITING; Start 07/31/18 at 11:00 Acetaminophen (Tylenol Tab) 650 mg Q6H PRN PO .PAIN 1-3 OR TEMP; Start 07/31/18 at 11:00 Acetaminophen/ Hydrocodone Bitart ([place] (5/325)) 1 tab Q6H PRN PO .MOD PAIN 4- 6; Start 07/31/18 at 11:00 Morphine Sulfate (morphine) 2 mg Q4H PRN IV .SEVERE PAIN 7-10; Start 07/31/18 at 11:00 Docusate Sodium (Colace) 100 mg Q12H PRN PO .CONSTIPATION; Start 07/31/18 at 11:00 Magnesium Hydroxide (Milk Of Mag) 30 ml DAILY PRN PO .CONSTIPATION; Start 07/31/18 at 11:00 Pantoprazole (Protonix Tab) 40 mg DAILY@06 PO Last administered on 08/01/18at 06:47; Admin Dose 40 MG; Start 08/01/18 at 06:00 Lorazepam (Ativan) 0.5 mg Q6H PRN IV ANXIETY; Start 07/31/18 at 11:00 Albuterol/ Ipratropium (Duoneb) 3 ml Q4H RESP THERAPY PRN HHN SHORTNESS OF BREATH; Start 07/31/18 at 11:00 Hydralazine HCl (Apresoline) 10 mg Q6H PRN IV ELEVATED BLOOD PRESSURE; Start 07/31/18 at 11:00 Nitroglycerin (Nitroglycerin (Sl Tab) 0.4 Mg) 1 tab Q5M PRN SL ANGINA; Start 07/31/18 at 11:00 Diltiazem HCl 125 ml @ 5 mls/hr TITRATE IV ; Start 07/31/18 at 11:00 Apixaban (Eliquis) 5 mg BID PO Last administered on 08/01/18at 08:08; Admin Dose 5 MG; Start 07/31/18 at 21:00 Carvedilol (Coreg) 25 mg BID PO Last administered on 08/01/18at 08:07; Admin Dose 25 MG; Start 07/31/18 at 21:00 Cyanocobalamin (Vitamin B12) 500 mcg DAILY PO Last administered on 08/01/18at 08:07; Admin Dose 500 MCG; Start 08/01/18 at 09:00 Folic Acid (Folic Acid) 1 mg DAILY PO Last administered on 08/01/18at 08:08; Admin Dose 1 MG; Start 08/01/18 at 09:00 Insulin Glargine (Lantus) 50 units DAILY SC Last administered on 08/01/18at 08:29; Admin Dose 50 UNITS; Start 08/01/18 at 09:00 Levothyroxine Sodium (Synthroid) 175 mcg BEFORE BREAKFAST PO Last administered on 08/01/18at 06:47; Admin Dose 175 MCG; Start 08/01/18 at 07:00 Pregabalin (Lyrica) 50 mg BID PO Last administered on 08/01/18 08:07; Admin Dose 50 MG; Start 07/31/18 at 21:00 Sevelamer Carbonate (Renvela) 2.4 gm WITH MEALS PO ; Start 07/31/18 at 18:00 Miscellaneous Information 1 ea NOTE XX ; Start 07/31/18 at 13:30 Glucose (Glutose) 15 gm Q15M PRN PO DECREASED GLUCOSE; Start 07/31/18 at 13:30 Glucose (Glutose) 22.5 gm Q15M PRN PO DECREASED GLUCOSE; Start 07/31/18 at 13:30 Dextrose (D50w Syringe) 25 ml Q15M PRN IV DECREASED GLUCOSE; Start 07/31/18 at 13:30 Dextrose (D50w Syringe) 50 ml Q15M PRN IV DECREASED GLUCOSE; Start 07/31/18 at 13:30 Glucagon (Glucagen) 1 mg Q15M PRN IM DECREASED GLUCOSE; Start 07/31/18 at 13:30 Glucose (Glutose) 15 gm Q15M PRN BUCCAL DECREASED GLUCOSE; Start 07/31/18 at 13:30 Diagnostic Test (Pha) (Accu-Chek) 1 ea 02 XX ; Start 08/01/18 at 02:00 Insulin Aspart (Novolog Insulin Pen) NOVOLOG *MILD* ALGORITHM WITH MEALS BEDTIME SC Last administered on 08/01/18at 07:51; Admin Dose 1 UNIT; Start 07/31/18 at 18:00 Miscellaneous Information Patients own medicat... BID@10,16 XX ; Start 08/01/18 at 10:00 CARY SEGAL MD Aug 01, 2018 14:25
--- NOTE | 2018-08-01 14:57 | RADRPT ---
Echocardiogram Report Patient Name: Chela MARTINEZ ID: [id number] : 1950 (68y 2m)Study Date: 07/31/2018 2:29:45 PM Gender: FAccession #: [id number] Tech: [facility] [place] Location: Ref.Physician: ELVIA ZULETA Height(Cm): 165 BSA: 2.09Weight(Kg): 95.7 Quality: GoodAccount #: Procedures: Echocardiographic Report: Transthoracic echocardiogram with complete 2D, M-Mode, and doppler examination. Indications: Atrial Fibrillation. Measurements: 2D/M Mode Doppler Measurement Value Normal Range Measurement Value Normal Range LVIDd 2D 6.4 [ 3.8 - 5.2 ] cm AV Peak Joey 1.3 [ 100.0 - 170.0 ] cm/se c LVIDs 2D 4.8 [ 2.2 - 3.5 ] cm AV Peak PG 6.0 [ 2.0 - 9.0 ] mmHg LVPWd 2D 1.2 [ 0.6 - 0.9 ] cm LVOT Peak Joey 0.8 [ 70.0 - 110.0 ] cm/sec IVSd 2D 1.4 [ 0.6 - 0.9 ] cm LVOT Peak PG 3.0 [ 2.0 - 6.0 ] mmHg AoR Diam 2D 3.4 [ 2.3 - 3.1 ] cm MV E Peak Joey 0.8 [ 60.0 - 130.0 ] cm/sec EF 2D 49.8 [ 54.0 - 74.0 ] percent MV A Peak Joey 1.0 [ 100.0 - 120.0 ] cm/se c LA Dimen 2D 5.8 [ 2.7 - 3.8 ] cm MV E/A 0.8 [ 0.8 - 1.5 ] ratio MV PHT 66.0 [ 20.0 - 100.0 ] msec MV Decel Time 224 [ 104 - 258 ] msec MV Decel [place] 4 Lat E` Joey 0.1 [ 10.0 - 15.0 ] cm/sec Lateral E/E` 12.9 [ 1.0 - 2.0 ] ratio Med E` Joey 0.0 cm/sec MV E/A 0.8 [ 0.8 - 1.5 ] ratio MVA PHT 3.3 [ 2.0 - 4.0 ] cm2 PV Peak Joey 0.8 [ 40.0 - 80.0 ] cm/sec PV Peak PG 3.0 mmHg Findings: Left Ventricle: Mild concentric left ventricular hypertrophy. Severe enlargement of left ventricle cavity. Severe left ventricular systolic dysfunction. Ejection fraction is visually estimated at 29 %. These segments of the LV are hypokinetic basal anterior segment, mid anterior segment, apical anterior segment and apical lateral segment. These segments of the LV are akinetic inferior base segment, inferior mid segment, inferoseptum base segment, inferoseptum mid segment, anteroseptum base segment and anteroseptum mid segment. Right Ventricle: Normal right ventricular size. Normal right ventricular systolic function. Left Atrium: There is severe enlargement of left atrium. Right Atrium: The right atrium is normal in size. Atrial Septum: Normal atrial septum. Mitral Valve: Mild mitral annular calcification. Mild mitral valve regurgitation. Aortic Valve: No hemodynamically significant aortic stenosis by doppler. Aortic sclerosis without significant stenosis. Trileaflet aortic valve. No aortic regurgitation. Tricuspid Valve: Normal appearance of the tricuspid valve. Estimated peak PA systolic pressure 25 mmHg. There is trace tricuspid regurgitation. Pulmonic Valve: Normal pulmonic valve appearance. No evidence of pulmonic regurgitation. Pericardium: Trivial pericardial effusion. No echocardiographic evidence to suggest pericardial tamponade. Aorta: Normal aortic root. IVC: Normal size and normal respiratory collapse consistent with normal right atrial pressure. Pulmonary Artery: Normal pulmonary artery size. Conclusions: Mild concentric left ventricular hypertrophy. Severe enlargement of left ventricle cavity. Severe left ventricular systolic dysfunction. Ejection fraction is visually estimated at 29 %. These segments of the LV are hypokinetic basal anterior segment, mid anterior segment, apical anterior segment and apical lateral segment. These segments of the LV are akinetic inferior base segment, inferior mid segment, inferoseptum base segment, inferoseptum mid segment, anteroseptum base segment and anteroseptum mid segment. Mild mitral annular calcification. Mild mitral valve regurgitation. No hemodynamically significant aortic stenosis by doppler. Aortic sclerosis without significant stenosis. Trileaflet aortic valve. No aortic regurgitation. Normal appearance of the tricuspid valve. Estimated peak PA systolic pressure 25 mmHg. There is trace tricuspid regurgitation. Electronically Signed By: Dl Caruso 2018-08-01 14:56:44 PST
== END 2018-08-01 16:40 | disposition home or self-care (01) | DRG 308 ==
LOC: E/R 08:15 → 6WM 10:51
PROVIDERS: ADMIT Hospitalist; ATTEND Hospitalist
DX: I48.0 Paroxysmal atrial fibrillation (principal); N18.6 End stage renal disease; I12.0 Hypertensive chronic kidney disease with stage 5 chronic kidney disease or end stage renal disease; D68.69 Other thrombophilia; Z79.01 Long term (current) use of anticoagulants; E11.22 Type 2 diabetes mellitus with diabetic chronic kidney disease; Z99.2 Dependence on renal dialysis; E87.70 Fluid overload, unspecified; R09.89 Other specified symptoms and signs involving the circulatory and respiratory systems; Z95.0 Presence of cardiac pacemaker; E83.39 Other disorders of phosphorus metabolism; E66.9 Obesity, unspecified; Z68.35 Body mass index [BMI] 35.0-35.9, adult; R79.89 Other specified abnormal findings of blood chemistry
CPT/HCPCS: 36415; 71045; 76775; 80048; 80053; 80061; 81003; 82550; 82570; 82962; 83036; 83690; 83735; 84100; 84300; 84439; 84443; 84484; 84560; 85025; 85610; 85730; 87081; 89190; 93005; 93306; 96374; J0360; J1815